=== PATIENT | female | born 1995 | race Caucasian/White ===

== ENCOUNTER 2020-11-30 19:33 | Emergency (ER) | payer MEDICARE, OTHER ==
[~2020-11-30] VITALS: Ht 160 cm; Wt 117.8 kg
[2020-11-30] MEDS ORDERED: TRAM50TA2 PO (19:49)
[2020-11-30] MEDS ORDERED: OLAN15TA PO (19:49)
[2020-11-30] MEDS ORDERED: PROP10TA56 PO (19:49)
[2020-11-30] MEDS ORDERED: PROP20TA72 PO (19:49)
[2020-11-30] MEDS ORDERED: VALI2TAB PO (19:49)
[2020-11-30] MEDS ORDERED: PANT40TA29 PO (19:49)
[2020-11-30] MEDS ORDERED: ZOLO100T PO (19:49)
[2020-11-30] MEDS ORDERED: MELA1LIQ2 PO (19:49)
[2020-11-30] MEDS ORDERED: TEST200I14 IM (19:49)
[2020-11-30] MEDS ORDERED: RISP2TAB32 PO (19:49)
[2020-11-30] MEDS ORDERED: LYRI75CA PO (19:49)
[2020-11-30] MEDS ORDERED: CETI10CA2 PO (19:49)
[2020-11-30] MEDS ORDERED: OLAN10TA12 PO (19:49)
[2020-11-30] MEDS ORDERED: NAPROXEN 250 MG TAB PO ONE (22:05)
[2020-11-30 23:07] LABS: BASO # 0.1 10^3/uL (0.0-0.2); BASO % 0.8 % (0.0-1.0); EOS # 0.2 10^3/uL (0.0-0.5); EOS % 2.8 % (0.0-3.0); HEMATOCRIT 43.3 % (36.0-47.0); HEMOGLOBIN 13.8 g/dl (12.0-15.5); LYMPH # 2.9 10^3/uL (1.5-5.0); LYMPH % 35.3 % (24.0-44.0); MEAN CORPUSCULAR HEMOGLOBIN 27.2 pg (27.0-33.0); MEAN CORPUSCULAR HGB CONC 31.9 g/dl (32.0-36.5); MEAN CORPUSCULAR VOLUME 85.2 fl (80.0-96.0); MONO # 0.7 10^3/uL (0.0-0.8); MONO % 8.9 % (2.0-8.0); NEUTROPHILS # 4.3 10^3/uL (1.5-8.5); NEUTROPHILS % 51.8 % (36.0-66.0); PLATELET COUNT, AUTOMATED 260 10^3/uL (150-450); RED BLOOD COUNT 5.08 10^6/uL (4.00-5.40); WHITE BLOOD COUNT 8.3 10^3/uL (4.0-10.0)
--- NOTE | 2020-11-30 23:32 | REPVR ---
PROCEDURE INFORMATION: Exam: US Nonobstetric Pelvis; Complete (transabdominal and transvaginal) Exam date and time: 11/30/20 (10:19pm) Age: 25 years old Clinical indication: Pelvic pain. Severe cramping, light spotting. Testosterone. Transgender individual. TECHNIQUE: Imaging protocol: Transabdominal and transvaginal pelvic non-obstetric ultrasound. Complete examination. Real time ultrasound with image documentation. COMPARISON: No relevant prior studies available FINDINGS: The LMP is reported to be: 2018 The uterus is anteverted, measuring 7.9 x 3.8 x 4.7 cm in dimensions. No uterine mass is seen. The endometrium measures 6 mm in thickness. Nonspecific linear intrauterine echogenic focus (10 x 2 mm size). The right ovary measures 2.6 x 1.3 x 1.8 cm in size. The left ovary measures 1.8 x 1.3 x 1.8 cm in size. There is no evidence of ovarian torsion on Doppler evaluation. No free pelvic fluid is seen. No solid adnexal masses. IMPRESSION: No acute pelvic pathology. Possible calcified intrauterine scar (linear echogenic focus noted). No solid pelvic mass. No fluid collections. The ovaries are unremarkable, with no evidence of torsion. Electronically signed by: Carmel Alex On 11/30/2020 23:31:26 PM
[2020-12-01] MEDS ORDERED: NAPR-837 PO (00:16)
[2020-12-01 00:48] VITALS: BP 134/80
== END 2020-12-01 00:52 | disposition home or self-care (01) ==
LOC: M ED 19:33
DX: R10.2 Pelvic and perineal pain (principal); F99 Mental disorder, not otherwise specified; M79.7 Fibromyalgia; Z88.8 Allergy status to other drugs, medicaments and biological substances; Z79.899 Other long term (current) drug therapy

== ENCOUNTER → 2020-12-06 | Outpatient (CLI) | payer MEDICARE, OTHER ==
[~2020-12-06] MED LIST: CETI10CA2 PO; LYRI75CA PO; MELA1LIQ2 PO; NAPR-837 PO; OLAN10TA12 PO; OLAN15TA PO; PANT40TA29 PO; PROP10TA56 PO; PROP20TA72 PO; RISP2TAB32 PO; TEST200I14 IM; TRAM50TA2 PO; VALI2TAB PO; ZOLO100T PO
--- NOTE | 2020-12-06 14:29 | REP ---
INDICATION: LOW BACK PAIN. COMPARISON: None. TECHNIQUE: AP and lateral lumbosacral spine. FINDINGS: There is no compression fracture or malalignment. There is normal lumbar lordosis. There is no significant disc space narrowing. The posterior elements are intact. There are hypoplastic 12th ribs present. IMPRESSION: Negative exam lumbosacral spine. <Electronically signed by Ketan Patterson > 12/06/20 [id number]
== END ==
LOC: M WUC 10:10
DX: M54.5 Low back pain (principal)

== ENCOUNTER 2021-01-23 13:33 | Inpatient (IN) | payer MEDICARE, OTHER ==
[~2021-01-23] VITALS: Ht 160 cm; Wt 117.7 kg
[~2021-01-23 13:33] MED LIST changes: -OLAN15TA PO; +OLAN15TA13 PO
[2021-01-23 15:12] LABS: HEMATOCRIT 45.5 % (36.0-52.0); HEMOGLOBIN 14.6 g/dl (12.0-18.0); MEAN CORPUSCULAR HGB CONC 32.1 g/dl (32.0-36.5); MEAN CORPUSCULAR VOLUME 84.3 fl (80.0-96.0); PLATELET COUNT, AUTOMATED 287 10^3/uL (150-450); WHITE BLOOD COUNT 7.6 10^3/uL (4.5-12.0)
[2021-01-23 15:32] LABS: AMPHETAMINES LEVEL URINE NEGATIVE (NEGATIVE); BARBITURATES URINE NEGATIVE (NEGATIVE); BENZODIAZEPINES URINE NEGATIVE (NEGATIVE); CANNABINOIDS URINE NEGATIVE (NEGATIVE); COCAINE METABOLITE URINE NEGATIVE (NEGATIVE); METHADONE URINE NEGATIVE (NEGATIVE); OPIATES URINE NEGATIVE (NEGATIVE); PHENCYCLIDINE URINE NEGATIVE (NEGATIVE)
[2021-01-23 15:40] LABS: ACETAMINOPHEN LEVEL < 2.0 UG/ML (10.0-30.0); ALT/SGPT 20 U/L (12-78); BILIRUBIN,DIRECT 0.1 MG/DL (0.0-0.2); BILIRUBIN,TOTAL 0.6 MG/DL (0.2-1.0); BLOOD UREA NITROGEN 17 MG/DL (7-18); CALCIUM LEVEL 8.9 MG/DL (8.4-10.2); CARBON DIOXIDE LEVEL 27 MEQ/L (21-32); CHLORIDE LEVEL 108 MEQ/L (98-107); CREATININE FOR GFR 1.12 MG/DL (0.55-1.30); ETHYL ALCOHOL (ETHANOL) 0.003 % (0.000-0.010); GLOMERULAR FILTRATION RATE > 60.0 (>60); GLUCOSE, FASTING 90 MG/DL (40-105); POTASSIUM SERUM 4.3 MEQ/L (3.5-5.1); SALICYLATE LEVEL < 1.7 MG/DL (5.0-30.0); SODIUM LEVEL 140 MEQ/L (136-145); THYROID STIMULATING HORMONE 0.936 uIU/ML (0.358-3.740); TOTAL PROTEIN 7.1 GM/DL (6.4-8.2)
[2021-01-23 18:37] LABS: HCG, SERUM QUALITATIVE NEGATIVE
[2021-01-23] MEDS ORDERED: risperiDONE 2 MG TAB PO ONE (18:45)
[2021-01-24] MEDS ORDERED: METAL LOCK LOOP XX ONE (03:56)
[2021-01-24] MEDS: CETIRIZINE (ZyrTEC) 10 MG TAB PO SCH (09:00)
[2021-01-24] MEDS ORDERED: PREGABALIN 75 MG CAP(LYRICA) PO ONE (09:25)
[2021-01-24] MEDS ORDERED: PROPRANOLOL 20 MG TAB PO ONE (09:25)
[2021-01-24] MEDS ORDERED: SERTRALINE 100 MG TAB PO ONE (09:25)
[2021-01-24] MEDS ORDERED: PANTOPRAZOLE 40MG TAB (PROTONIX) PO ONE (09:25)
[2021-01-24] MEDS ORDERED: PROPRANOLOL 10 MG TAB PO ONE (10:00)
[2021-01-24] MEDS ORDERED: NAPROXEN 250 MG TAB PO ONE (10:45)
[2021-01-24] MEDS ORDERED: CETI-24 PO (12:40)
[2021-01-24] MEDS ORDERED: NAPR-885 PO (12:40)
[2021-01-24] MEDS ORDERED: MELA3TAB13 PO (12:40)
[2021-01-24] MEDS ORDERED: traZODone 50 MG TAB PO PRN (12:50)
[2021-01-24] MEDS ORDERED: ACETAMINOPHEN TAB 650MG DOSE (2X325MG) PO PRN (12:50)
[2021-01-24] MEDS ORDERED: MOM 30ML SUSPENSION UDC PO PRN (12:50)
[2021-01-24] MEDS ORDERED: MAALOX 30 ML SUSP *UDC PO PRN (12:50)
[2021-01-24 13:15] LABS: RSV AMPLIFICATION NEGATIVE (NEGATIVE)
[2021-01-24 14:01] VITALS: BP 104/54
[2021-01-24] MEDS: LORazepam 2 MG TAB PO PRN (18:00)
[2021-01-24] MEDS: risperiDONE 2 MG TAB PO SCH (21:39)
[2021-01-24] MEDS: PREGABALIN 75 MG CAP(LYRICA) PO SCH (21:39)
[2021-01-24] MEDS: PROPRANOLOL 20 MG TAB PO SCH (22:09)
[2021-01-25 06:33] VITALS: BP 152/78
[2021-01-25] MEDS: CETIRIZINE (ZyrTEC) 10 MG TAB PO SCH (07:33)
[2021-01-25] MEDS: SERTRALINE 100 MG TAB PO SCH (07:33)
[2021-01-25] MEDS: LORazepam 2 MG TAB PO PRN ×2 (07:33→13:36)
[2021-01-25] MEDS: PANTOPRAZOLE 40MG TAB (PROTONIX) PO SCH (07:33)
[2021-01-25] MEDS: PROPRANOLOL 20 MG TAB PO SCH ×2 (07:35→20:11)
[2021-01-25] MEDS: PREGABALIN 75 MG CAP(LYRICA) PO SCH ×2 (07:35→20:09)
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
--- NOTE | 2021-01-25 15:11 | HPEPDOC ---
[facility] Medical History & Physical Date of Admission Jan 24, 2021 Date of Service: Jan 25, 2021 History and Physical Chief complaint: Who presented to the emergency room after experiencing suicidal thoughts History of present illness: Patient is a 25-year-old transgendered female who presented to the emergency room with suicidal thoughts. Patient was admitted to the inpatient mental health unit under the care of psychiatry. Hospitalist service was consulted for medical screening evaluation. Patient reports a mild headache. They deny any nausea, vomiting, chest pain, shortness breath, palpitations, abdominal pain, constipation, diarrhea, or urinary discomfort. They deny any recent fevers or chills. Patient reports that they may be experiencing 5 pound weight loss over 7 days. Reports that her appetite has been relatively stable. Past Medical History: Tachycardia Fibromyalgia PTSD / Anxiety / Depression / Borderline personality disorder / OCD / Eating disorder GERD Past Surgical History: Dilation and curettage 2017 Scheduled to receive hysterectomy on 02/2021 Allergies: See below Medications: See below Family History: - Mother with a history of SVT, diabetes, arthritis and mental health disorders - Father with history of ME Social History: - Denies the use of alcohol, tobacco or illicit drugs - Denies recent travel or sick contacts - Lives with roommate - Occupation; disabled Review of Systems: 10 point review of systems complete, all negative otherwise stated in HPI Physical exam: - Vitals: BP [152/78], HR [100], RR [18], Sat [95%RA], Temp [99.7F] - General: Sitting up in bed, Speaking in full sentences, AAOx3 - HEENT: NC, AT, PERRLA, EOMI - CVS: RRR, +S1S2 - Lungs: Fair air entry bilaterally, No appreciable wheezing / rales / rhonchi - Abdomen: Soft, Non-distended, Non-tender - Extremities: No lower extremity edema, No calf tenderness - Neuro: No focal motor or sensory deficit - Skin: No visible rashes Labs: See below Imaging: See below EKG: See below Assessment and Plan: Suicidal ideation / Self harm behavior - Hx of PTSD / Anxiety / Depression / Borderline personality disorder / OCD / Eating disorder - Currently has been admitted to the inpatient mental health unit under the care of psychiatry - Currently being managed by psychiatry Tachycardia - Continue propranolol Fibromyalgia - c/w Pregabalin GERD - c/w Protonix DVT prophylaxis - Will c/w early ambulation 2 female industrial technician was present throughout the duration of this history and physical examination Thank you for this consultation; hospitalist service will now sign off, please reconsult as needed Vital Signs Vital Signs Date Time Temp Pulse Resp B/P (MAP) Pulse Ox O2 Delivery O2 Flow Rate FiO2 01/25/21 07:35 100 124/71 01/25/21 06:33 99.7 18 95 Room Air Home Medications Scheduled Cetirizine HCl (Cetirizine HCl) 10 Mg Tablet, 10 MG PO DAILY Melatonin/Pyridoxine HCl (B6) (Melatonin 3 mg Tablet) 1 Each Tablet, 3 MG PO QHS Pantoprazole Sodium (Pantoprazole Sodium) 40 Mg Tablet.dr, 40 MG PO DAILY Pregabalin (Lyrica) 75 Mg Capsule, 75 MG PO BID Propranolol HCl (Propranolol HCl) 20 Mg Tablet, 20 MG PO BID Risperidone (Risperdal) 2 Mg Tablet, 2 MG PO QHS Sertraline Hcl (Zoloft) 100 Mg Tablet, 100 TAB PO DAILY Testosterone Cypionate (Testosterone Cypionate) 200 Mg/1 Ml Vial, 0.4 ML IM QWEEK TUESDAYS Scheduled PRN Naproxen (Naproxen) 500 Mg Tablet, 500 MG PO BID PRN for PAIN LEVEL 1-4 Allergies Coded Allergies: quetiapine (Verified Adverse Reaction, Intermediate, DRY MOUTH AND PANICS, 11/30/20) LISA SCHAFER MD Jan 25, 2021 15:11
[2021-01-25 18:27] VITALS: BP 137/74
[2021-01-25] MEDS: risperiDONE 2 MG TAB PO SCH (20:09)
[2021-01-26 06:00] VITALS: BP 113/58
[2021-01-26] MEDS: LORazepam 2 MG TAB PO PRN ×2 (06:27→12:28)
[2021-01-26] MEDS: CETIRIZINE (ZyrTEC) 10 MG TAB PO SCH (08:04)
[2021-01-26] MEDS: PANTOPRAZOLE 40MG TAB (PROTONIX) PO SCH (08:04)
[2021-01-26] MEDS: SERTRALINE 100 MG TAB PO SCH (08:04)
[2021-01-26] MEDS: PREGABALIN 75 MG CAP(LYRICA) PO SCH ×2 (08:05→22:23)
[2021-01-26] MEDS: PROPRANOLOL 20 MG TAB PO SCH ×2 (08:05→22:22)
[2021-01-26] MEDS: risperiDONE 1 MG TAB PO SCH (09:00)
[2021-01-26] MEDS: NAPROXEN 250 MG TAB PO PRN (11:47)
--- NOTE | 2021-01-26 13:03 | MHIPNPDOC ---
[facility] Progress Note Progress Note DATE OF SERVICE: 01/26/21 HISTORY: As per ED report and previous records: " HISTORY OF THE PRESENT ILLNESS: Patient is a 25 -year-old Single, Disabled, , transgender female to male who voiced his concerns of suicidal thoughts to overdose on medications or cut self with a razor blade due to increasing anxiety and panic attacks. He was sent to the ED for mental health evaluation and was unable to contract for safety. Patient reports that this is his 28th hospitalization and most recently was discharged on November 29 from [facility] following an overdose. Patient reports that he lost a baby in 2016 and began hormones to transgender to male in 2018. He reports diagnoses Major Depressive Disorder, Autism, Borderline Personality Disorder, PTSD, OCD and Unspecified Eating Disorder. On this occasion, patient had taken a comb and scratched herself with it causing laceration to right forearm. He was placed on 1:1 sitter for her risk of self harm behavior. He is requesting to be discharged today stating that he will be unsafe in the hospital, as well as, at home. Per ED Reports Pt was referred by [facility] Reject Opener And Filler after pt. voiced wanting to harm himself with medication (that was going to be delivered this afternoon) or by cutting with a razor blade due to increasing panic attacks. Pt denied SI initially, but unable to CFS and states "If I go home I will probably overdose like I have in the past." Pt states," I am really nervous that I'm going to end up killing myself, even though I don't have active suicidal thoughts." He reports being transgendered ([id number]), recently moved from [facility] to [facility] on 11/29/20. He reports a Hx of Major Depression, PTSD, OCD, and B orderline Personality Disorder. States he has numerous hospitalizations to [facility]- was recently discharged Nov, 2020 following a suicide attempt by OD. Pt reports being increasingly stressed today after being at [facility] and not having any groups to attend. He admits it was too quite which was triggering panic-like symptoms. Other stressors include feeling lonely due to just recently moving to the area and has not been fully established with CC. Pt reports reflecting back on his stressors today and contacted his bilingual case manager and informed her he was not sure if he could keep himself safe. He reported his medication was going to be delivered today by the pharmacy and could not guarantee he wouldn't OD and kill himself, even though he denied SI. He also reported having access to a used razor at home and admitted to bilingual case manager he wanted to cut himself. Pt does not appear to be a reliable historian at this time. He denies SI, but then states he is unable to CFS if discharged. VITAL SIGNS: See below. NEW TEST RESULTS: See below CURRENT MEDICATIONS: See below. MENTAL STATUS EXAMINATION: Patient is a 25-year old female, who is awar, wearing hospital scrubs, superficially cooperative, with poor eye contact, playing games in his room with his sitter aide to keep him distracted. He's overweight with parts of his hair dyed red Speech: Is slow, normal in tone, low volume, not fluent but is spontaneous. Language skills are fair. Thought processes including: linear and coherent. Thought content: redundant about the possibility of hurting himself although he said he didn't have suicidal ideation this morning, he denies homicidal ideation, denies feeling paranoid. Description of associations: they are not loose Description of abnormal or psychotic thoughts: he denies TAV hallucinations, he's not responding to internal stimuli Judgment: Poor Insight: poor. Orientation: to place, person and situation. Recent and remote memory: fair. Attention span and concentration: not easily distracted at this time. Language: not abnormalities observed. Fund of knowledge: unable to assess. Mood: depressed. Affect: constricted/sad. DIAGNOSES: Major Depressive Disorder, recurrent, mild Autism, Borderline Personality Disorder, PTSD, OCD nspecified Eating Disorder. ASSESSMENT: The patient is sitting in his room coloring, playing games with his sitter who is helping him get distracted. he says he feels sad because he misses his baby. According to history the patient started the process to become transgender after he miscarried his baby in 2017 and since then he has had multiple hospitalizations. He has been restricted from group activity and he says this is the result of him grabbing a pencil to self harm. He wants to know when he would be able to go back to groups and I explained he needs to prove he is in control of his impulses and behavior before he goes back to group. He was receptive. i will incease his Risperdal and will order 1 mg PO In AM. MANAGEMENT PLAN: As above TIME SPENT: 15 minutes. Vital Signs Vital Signs Date Time Temp Pulse Resp B/P (MAP) Pulse Ox O2 Delivery O2 Flow Rate FiO2 01/26/21 08:05 88 113/58 01/26/21 06:00 98.7 20 93 Room Air Current Medications Current Medications Medications (Trade) Dose Ordered Sig/Louie Route PRN Reason Start Time Stop Time Status Last Admin Dose Admin Acetaminophen (Tylenol Tab) 650 mg Q6HP PRN PO HEADACHE or MILD DISCOMFORT 01/24/21 12:50 01/25/21 09:57 Al Hydrox/Mg Hydrox/Simethicone (Mylanta) 30 ml Q4HP PRN PO HEARTBURN/INDIGESTION 01/24/21 12:50 Cetirizine HCl (ZyrTEC) 10 mg DAILY PO 01/24/21 09:00 01/26/21 08:04 Home Med (Med Rec Complete!) ASDIRECTED XX 01/24/21 12:45 01/24/21 12:42 DC Lorazepam (Ativan) 2 mg Q6HP PRN PO ANXIETY/AGITATION 01/24/21 17:40 01/26/21 12:28 Magnesium Hydroxide (Milk Of Magnesia) 30 ml DAILYPRN PRN PO CONSTIPATION 01/24/21 12:50 Naproxen (Naprosyn) 500 mg BID PRN PO PAIN LEVEL 1-4 01/24/21 12:50 01/26/21 11:47 Pantoprazole Sodium (Protonix) 40 mg DAILY PO 01/25/21 09:00 01/26/21 08:04 Pregabalin (Lyrica) 75 mg BID PO 01/24/21 21:00 01/26/21 08:05 Propranolol HCl (Inderal) 20 mg BID PO 01/24/21 21:00 01/26/21 08:05 Risperidone (RisperDAL) 2 mg QHS PO 01/24/21 21:00 01/25/21 20:09 Sertraline HCl (Zoloft) 100 mg DAILY PO 01/25/21 09:00 01/26/21 08:04 Trazodone HCl (Desyrel) 50 mg QHSP PRN PO INSOMNIA 01/24/21 12:50 Allergies Coded Allergies: quetiapine (Verified Adverse Reaction, Intermediate, DRY MOUTH AND PANICS, 11/30/20) HEIDI CRUM MD Jan 26, 2021 12:55
[2021-01-26] MEDS ORDERED: diphenhydrAMINE 50MG/ML VIAL (J1200) IM ONE (13:30)
[2021-01-26] MEDS ORDERED: diphenhydrAMINE 50MG CAP PO STA (13:34)
[2021-01-26 17:00] VITALS: BP 123/75
[2021-01-26] MEDS: risperiDONE 2 MG TAB PO SCH (22:22)
[2021-01-27 07:10] VITALS: BP 118/68
[2021-01-27] MEDS: PANTOPRAZOLE 40MG TAB (PROTONIX) PO SCH (08:02)
[2021-01-27] MEDS: CETIRIZINE (ZyrTEC) 10 MG TAB PO SCH (08:02)
[2021-01-27] MEDS: LORazepam 2 MG TAB PO PRN ×2 (08:02→16:11)
[2021-01-27] MEDS: PREGABALIN 75 MG CAP(LYRICA) PO SCH ×2 (08:02→20:03)
[2021-01-27] MEDS: risperiDONE 1 MG TAB PO SCH (08:03)
[2021-01-27] MEDS: SERTRALINE 100 MG TAB PO SCH (08:03)
[2021-01-27] MEDS: PROPRANOLOL 20 MG TAB PO SCH ×2 (08:04→20:03)
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
[2021-01-27] MEDS: risperiDONE 2 MG TAB PO SCH (20:04)
[2021-01-28] MEDS: LORazepam 2 MG TAB PO PRN ×2 (07:18→14:15)
[2021-01-28] MEDS: PROPRANOLOL 20 MG TAB PO SCH ×2 (08:05→21:23)
[2021-01-28] MEDS: PANTOPRAZOLE 40MG TAB (PROTONIX) PO SCH (08:05)
[2021-01-28] MEDS: PREGABALIN 75 MG CAP(LYRICA) PO SCH ×2 (08:05→21:23)
[2021-01-28] MEDS: SERTRALINE 100 MG TAB PO SCH (08:05)
[2021-01-28] MEDS: risperiDONE 1 MG TAB PO SCH (08:05)
[2021-01-28] MEDS: CETIRIZINE (ZyrTEC) 10 MG TAB PO SCH (08:06)
--- NOTE | 2021-01-28 11:21 | MHIPNPDOC ---
[facility] Progress Note Progress Note DATE OF SERVICE: 01/28/21 HISTORY: As per ED report and previous records: "Patient is a 25 -year-old Single, Disabled, , transgender female to male who voiced his concerns of suicidal thoughts to overdose on medications or cut self with a razor blade due to increasing anxiety and panic attacks. He was sent to the ED for mental health evaluation and was unable to contract for safety. Patient reports that this is his 28th hospitalization and most recently was discharged on November 29 from [facility] following an overdose. Patient reports that he lost a baby in 2017 and began hormones to transgender to male in 2018. He reports diagnoses Major Depressive Disorder, Autism, Borderline Personality Disorder, PTSD, OCD and Unspecified Eating Disorder. On this occasion, patient had taken a comb and scratched herself with it causing laceration to right forearm. He was placed on 1:1 sitter for her risk of self harm behavior. He is requesting to be discharged today stating that he will be unsafe in the hospital, as well as, at home. Per ED Reports Pt was referred by [facility] Adjunct Writing Instructor after pt. voiced wanting to harm himself with medication (that was going to be delivered this afternoon) or by cutting with a razor blade due to increasing panic attacks. Pt denied SI initially, but unable to CFS and states "If I go home I will probably overdose like I have in the past." Pt states," I am really nervous that I'm going to end up killing myself, even though I don't have active suicidal thoughts." He reports being transgendered ([id number]), recently moved from [facility] to [facility] on 11/29/20. He reports a Hx of Major Depression, PTSD, OCD, and Borderline Personality Disorder. States he has numerous hospitalizations to [facility]-was recently discharged Nov, 2020 following a suicide attempt by OD. Pt reports being increasingly stressed today after being at [facility] and not having any groups to attend. He admits it was too quite which was triggering panic-like symptoms. Other stressors include feeling lonely due to just recently moving to the area and has not been fully established with CC. Pt reports reflecting back on his stressors today and contacted his therapeutic case manager and informed her he was not sure if he could keep himself safe. He reported his medication was going to be delivered today by the pharmacy and could not guarantee he wouldn't OD and kill himself, even though he denied SI. He also reported having access to a used razor at home and admitted to therapeutic case manager he wanted to cut himself. Pt does not appear to be a reliable historian at this time. He denies SI, but then states he is unable to CFS if discharged. VITAL SIGNS: See below. NEW TEST RESULTS: See below CURRENT MEDICATIONS: See below. MENTAL STATUS EXAMINATION: Patient is a 25-year old female, who is wearing hospital scrubs, cooperative, with improved eye contact, obese Speech: Is slow, normal in tone, low volume, not fluent but is spontaneous. Language skills are fair. Thought processes including: linear and coherent. Thought content: denies suicidal thoughts, reports worsening depression and anxiety because of her admission Description of associations: they are not loose Description of abnormal or psychotic thoughts: he denies TAV hallucinations, he's not responding to internal stimuli Judgment: Fair Insight: Fair Orientation: to place, person and situation. Recent and remote memory: fair. Attention span and concentration: not easily distracted at this time. Language: not abnormalities observed. Fund of knowledge: unable to assess. Mood: depressed. Affect: constricted/sad. DIAGNOSES: Major Depressive Disorder, recurrent, mild Autism, Borderline Personality Disorder, PTSD, OCD Unspecified Eating Disorder. ASSESSMENT: Patient is in bed, states that over the weekend he opened up the wound on his arm because of intrusive memories and triggers. He also complained of RN not understanding his Borderline symptoms and thought processing. Patient was not forthcoming about his intrusive thoughts and what is triggering him. He wanted the 1:1 sitter to be discontinued. "I want to go to groups, have my meals in the dining room, I want to be able to eat with a fork and I don't want to have a sitter." When I reinforced the sitter and continued finger foods, he states, "If you don't trust me, why are you considering discharging me tomorrow?" Reinforced with patient that he stated that he was unsafe at the hospital and at home and that his own words were "I will be unsafe in the hospital, as well as, at home." Reinforced with the patient that his choices ultimately are his. He is not psychotic or intoxicated or have any cognitive impairment that prevents him from acting under his own choice and volition to self-harm whether in the hospital or at home. This patient states that this is his 28th hospitalization and it appears that he has not truly benefitted from past hospitalizations under similar conditions in terms of behavioral modifications or improvement in mental health or social conditions. He states that his mood is worse, albeit he currently has no thoughts to self harm. Patient was more self-motivated on Thursday when I spoke with [facility] to advocate for [facility] placement for the patient. Patient can be discharged tomorrow. MANAGEMENT PLAN: Continue all medications, discharge tomorrow TIME SPENT: 25 minutes. Vital Signs Vital Signs Date Time Temp Pulse Resp B/P (MAP) Pulse Ox O2 Delivery O2 Flow Rate FiO2 01/28/21 08:05 112 118/66 01/27/21 07:10 98.1 20 96 Room Air Current Medications Current Medications Medications (Trade) Dose Ordered Sig/Louie Route PRN Reason Start Time Stop Time Status Last Admin Dose Admin Acetaminophen (Tylenol Tab) 650 mg Q6HP PRN PO HEADACHE or MILD DISCOMFORT 01/24/21 12:50 01/25/21 09:57 Al Hydrox/Mg Hydrox/Simethicone (Mylanta) 30 ml Q4HP PRN PO HEARTBURN/INDIGESTION 01/24/21 12:50 Cetirizine HCl (ZyrTEC) 10 mg DAILY PO 01/24/21 09:00 01/28/21 08:06 Diphenhydramine HCl (Benadryl) 50 mg STAT STAT PO 01/26/21 13:34 01/26/21 13:35 DC 01/26/21 13:37 Home Med (Med Rec Complete!) ASDIRECTED XX 01/24/21 12:45 01/24/21 12:42 DC Lorazepam (Ativan) 2 mg Q6HP PRN PO ANXIETY/AGITATION 01/24/21 17:40 01/28/21 07:18 Magnesium Hydroxide (Milk Of Magnesia) 30 ml DAILYPRN PRN PO CONSTIPATION 01/24/21 12:50 Naproxen (Naprosyn) 500 mg BID PRN PO PAIN LEVEL 1-4 01/24/21 12:50 01/26/21 11:47 Pantoprazole Sodium (Protonix) 40 mg DAILY PO 01/25/21 09:00 01/28/21 08:05 Pregabalin (Lyrica) 75 mg BID PO 01/24/21 21:00 01/28/21 08:05 Propranolol HCl (Inderal) 20 mg BID PO 01/24/21 21:00 01/28/21 08:05 Risperidone (RisperDAL) 1 mg QAM PO 01/26/21 09:00 01/28/21 08:05 Risperidone (RisperDAL) 2 mg QHS PO 01/24/21 21:00 01/27/21 20:04 Sertraline HCl (Zoloft) 100 mg DAILY PO 01/25/21 09:00 01/28/21 08:05 Trazodone HCl (Desyrel) 50 mg QHSP PRN PO INSOMNIA 01/24/21 12:50 01/27/21 20:04 Allergies Coded Allergies: quetiapine (Verified Adverse Reaction, Intermediate, DRY MOUTH AND PANICS, 11/30/20) HELDER EDWARDS NP Jan 28, 2021 10:11
[2021-01-28] MEDS ORDERED: OLANZapine ORAL DISINTEGRATING TAB 5MG PO PRN (14:35)
[2021-01-28] MEDS: risperiDONE 2 MG TAB PO SCH (21:23)
[2021-01-29 08:03] VITALS: BP 124/71
[2021-01-29] MEDS: risperiDONE 1 MG TAB PO SCH (08:03)
[2021-01-29] MEDS: PANTOPRAZOLE 40MG TAB (PROTONIX) PO SCH (08:03)
[2021-01-29] MEDS: PREGABALIN 75 MG CAP(LYRICA) PO SCH (08:03)
[2021-01-29] MEDS: CETIRIZINE (ZyrTEC) 10 MG TAB PO SCH (08:03)
[2021-01-29] MEDS: SERTRALINE 100 MG TAB PO SCH (08:03)
[2021-01-29] MEDS: PROPRANOLOL 20 MG TAB PO SCH (08:03)
[2021-01-29] MEDS ORDERED: RISP-8 PO (09:05)
[2021-01-29] MEDS: NAPROXEN 250 MG TAB PO PRN (11:16)
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
[2021-01-30] MEDS ORDERED: RISP-8 PO (18:43)
== END 2021-01-29 12:05 | disposition home or self-care (01) | DRG 885 ==
LOC: M ED 13:33 → EDSEX 13:33 → M ED INP 01-24 12:50 → M PSY 01-24 13:54
PROVIDERS: ADMIT Psychiatry & Neurology Psychiatry; ATTEND Psychiatry & Neurology Psychiatry
DX: F33.0 Major depressive disorder, recurrent, mild (principal); R45.851 Suicidal ideations; F84.0 Autistic disorder; F60.3 Borderline personality disorder; F42.9 Obsessive-compulsive disorder, unspecified; F50.9 Eating disorder, unspecified; Z87.890 Personal history of sex reassignment; Z91.5 Personal history of self-harm; Z79.899 Other long term (current) drug therapy; Z88.8 Allergy status to other drugs, medicaments and biological substances; K21.9 Gastro-esophageal reflux disease without esophagitis; M79.7 Fibromyalgia; R00.0 Tachycardia, unspecified; Z62.810 Personal history of physical and sexual abuse in childhood

== ENCOUNTER 2021-01-30 09:48 | Inpatient (IN) | payer MEDICARE, OTHER ==
[~2021-01-30] VITALS: Ht 160 cm; Wt 118.2 kg
[~2021-01-30 09:48] MED LIST changes: +CETI-24 PO; +MELA3TAB13 PO; +NAPR-885 PO; +RISP-8 PO
[2021-01-30 10:42] LABS: HEMATOCRIT 45.9 % (36.0-47.0); HEMOGLOBIN 14.6 g/dl (12.0-15.5); MEAN CORPUSCULAR HGB CONC 31.8 g/dl (32.0-36.5); MEAN CORPUSCULAR VOLUME 84.8 fl (80.0-96.0); PLATELET COUNT, AUTOMATED 230 10^3/uL (150-450); RED BLOOD COUNT 5.41 10^6/uL (4.00-5.40); WHITE BLOOD COUNT 5.6 10^3/uL (4.0-10.0)
[2021-01-30 11:10] LABS: AMPHETAMINES LEVEL URINE NEGATIVE (NEGATIVE); BARBITURATES URINE NEGATIVE (NEGATIVE); BENZODIAZEPINES URINE NEGATIVE (NEGATIVE); CANNABINOIDS URINE NEGATIVE (NEGATIVE); COCAINE METABOLITE URINE NEGATIVE (NEGATIVE); METHADONE URINE NEGATIVE (NEGATIVE); OPIATES URINE NEGATIVE (NEGATIVE); PHENCYCLIDINE URINE NEGATIVE (NEGATIVE)
[2021-01-30 11:19] LABS: ACETAMINOPHEN LEVEL < 2.0 UG/ML (10.0-30.0); ALBUMIN 3.7 GM/DL (3.2-5.2); ALT/SGPT 21 U/L (12-78); BILIRUBIN,DIRECT 0.2 MG/DL (0.0-0.2); BILIRUBIN,TOTAL 0.6 MG/DL (0.2-1.0); BLOOD UREA NITROGEN 17 MG/DL (7-18); CALCIUM LEVEL 8.8 MG/DL (8.5-10.1); CARBON DIOXIDE LEVEL 28 MEQ/L (21-32); CHLORIDE LEVEL 109 MEQ/L (98-107); CREATININE FOR GFR 1.08 MG/DL (0.55-1.30); ETHYL ALCOHOL (ETHANOL) < 0.003 % (0.000-0.010); GLOMERULAR FILTRATION RATE > 60.0 (>60); GLUCOSE, FASTING 102 MG/DL (70-100); POTASSIUM SERUM 4.3 MEQ/L (3.5-5.1); SALICYLATE LEVEL < 1.7 MG/DL (5.0-30.0); SODIUM LEVEL 146 MEQ/L (136-145); THYROID STIMULATING HORMONE 0.638 uIU/ML (0.358-3.740); TOTAL PROTEIN 6.6 GM/DL (6.4-8.2)
[2021-01-30 11:23] LABS: HCG, SERUM QUALITATIVE NEGATIVE (NEGATIVE)
[2021-01-30] MEDS ORDERED: LORazepam 1 MG TAB PO ONE (14:25)
[2021-01-30] MEDS ORDERED: RISP-8 PO (18:43)
--- NOTE | 2021-01-30 20:16 | ECGEPIP ---
[facility] [place] - ED Test Date: 2021-01-30 Pat Name: LAW ROMAN Department: Room: - Gender: Female Director Of Casework Services: : 1995 Requested By: GILBERTO Izaguirre Order Number: [id number] Reading MD: Blanca Reynolds Measurements Intervals [place] Rate: 61 P: 29 TN: 120 QRS: 43 QRSD: 86 T: 31 QT: 372 QTc: 374 Interpretive Statements Normal sinus rhythm No prior Electronically Signed on 01-30-2021 20:16:25 EDT by Blanca Reynolds
[2021-01-31] MEDS ORDERED: PROPRANOLOL 20 MG TAB PO ONE (00:35)
[2021-01-31] MEDS ORDERED: PREGABALIN 75 MG CAP(LYRICA) PO ONE (00:35)
[2021-01-31] MEDS ORDERED: risperiDONE 2 MG TAB PO ONE (00:35)
[2021-01-31] MEDS ORDERED: risperiDONE 1 MG TAB PO SCH (09:00)
[2021-01-31] MEDS ORDERED: PREGABALIN 75 MG CAP(LYRICA) PO SCH (09:00)
[2021-01-31] MEDS ORDERED: SERTRALINE 100 MG TAB PO SCH (09:00)
[2021-01-31] MEDS ORDERED: PROPRANOLOL 20 MG TAB PO SCH (09:00)
[2021-01-31] MEDS ORDERED: PANTOPRAZOLE 40MG TAB (PROTONIX) PO SCH (09:00)
[2021-01-31 13:32] LABS: RSV AMPLIFICATION NEGATIVE (NEGATIVE)
[2021-01-31] MEDS ORDERED: ACETAMINOPHEN TAB 650MG DOSE (2X325MG) PO PRN (15:25)
[2021-01-31] MEDS ORDERED: NICOTINE 21MG/24HR 1 EA TRANSDERMAL TD PRN (15:25)
[2021-01-31] MEDS ORDERED: MOM 30ML SUSPENSION UDC PO PRN (15:25)
[2021-01-31] MEDS ORDERED: MAALOX 30 ML SUSP *UDC PO PRN (15:25)
[2021-01-31 17:14] VITALS: BP 131/78
[2021-01-31] MEDS: PREGABALIN 75 MG CAP(LYRICA) PO SCH (19:41)
[2021-01-31] MEDS: risperiDONE 2 MG TAB PO SCH (19:41)
[2021-01-31] MEDS: PROPRANOLOL 20 MG TAB PO SCH (19:48)
[2021-01-31] MEDS: LORazepam 2 MG TAB PO PRN (20:25)
[2021-01-31] MEDS ORDERED: risperiDONE 2 MG TAB PO SCH (21:00)
[2021-02-01] MEDS: LORazepam 2 MG TAB PO PRN ×3 (06:02→20:11)
[2021-02-01 08:07] VITALS: BP 116/67
[2021-02-01] MEDS: PROPRANOLOL 20 MG TAB PO SCH ×2 (08:14→20:11)
[2021-02-01] MEDS: CETIRIZINE (ZyrTEC) 10 MG TAB PO SCH (08:14)
[2021-02-01] MEDS: SERTRALINE 100 MG TAB PO SCH (08:15)
[2021-02-01] MEDS: risperiDONE 1 MG TAB PO SCH (08:15)
[2021-02-01] MEDS: PANTOPRAZOLE 40MG TAB (PROTONIX) PO SCH (08:15)
[2021-02-01] MEDS: PREGABALIN 75 MG CAP(LYRICA) PO SCH ×2 (08:15→20:11)
--- NOTE | 2021-02-01 09:33 | HPE ---
HISTORY AND PHYSICAL DATE OF ADMISSION: 01/31/2021 HISTORY OF PRESENT ILLNESS: This is a hospitalist generated history and physical. The patient is a 25-year-old transsexual (preferred pronoun he/him) who was admitted to the inpatient mental health unit. He just had a physical done 01/25/2021, and nothing has changed since then. PAST MEDICAL HISTORY: 1. Fibromyalgia. 2. Tachycardia. 3. PTSD. 4. Various psychiatric problems including borderline personality disorder, obsessive compulsive disorder (OCD), and eating disorder. 5. Gastroesophageal reflux disease (GERD). PAST SURGICAL HISTORY: Dilation and curettage (D&C) 2017 (scheduled hysterectomy Dr. Gurrola 02/2021). FAMILY HISTORY: Mother supraventricular tachycardia (SVT), diabetes, arthritis, and mental health disorders. Father with history of myocardial infarction ([place]). SOCIAL HISTORY: Denies alcohol, tobacco, or illicit drugs. REVIEW OF SYSTEMS: No chest pain, shortness of breath, or dyspnea on exertion. PHYSICAL EXAMINATION: VITAL SIGNS: As listed. GENERAL: Hirsute appearance. LUNGS: Clear. HEART: Regular rhythm without murmur. ABDOMEN: Soft and nontender with no masses. EXTREMITIES: No peripheral edema. Coordination normal. NEUROLOGIC: Normal. LABORATORY DATA: Unremarkable. IMPRESSION: No active medical problems that should require ongoing hospitalist involvement. Examination was performed with a female process pumper present at all times.
[2021-02-01] MEDS: NAPROXEN 250 MG TAB PO PRN (12:18)
--- NOTE | 2021-02-01 13:00 | MHHPEPDOC ---
General Date Of Admission: Jan 31, 2021 Legal Status: 9.39 Chief Complaint "I hurt myself." History of Present Illness HISTORY OF THE PRESENT ILLNESS: Patient is a 25 -year-old Single, Disabled, Domiciled, , transgender female to male who reports that he began c utting himself a few hours after his discharge on ThursdayJanuary 28. States that he cut himself on Thursday evening, Thursday morning and today. This is patient's th hospitalization since 2017. He had reported that he cut herself in the ED with a fork. He showed his telephonic nurse case manager that he had been cutting "I wanted her to know so that she could start the papers for [facility]. I want her to fill the papers out. On his last admission patient vacillated between the [facility] apartment where he would be allowed to have an cat or two versus being in [facility] where she will be monitored more often. When asked about his plans to have a pet he stated "I don't know if this is a question of want versus needing to be watched." He reports that his cutting urges vacillates from urges to cut and suicidal ideations. He reports that she has been using cutting as a coping mechanism since 2017 when he lost his baby. Patient has superficial cuts to upper right arm and one laceration to left upper thigh. R eporting depression and passive suicidal ideations today. States that he has had other addictive coping: spending money on [employer] tickets, buying money, spending money on people, giving money away and donating it. Reports a history of being sexually promiscuous after the father of his baby left her. States that he was engaged twice as a male and once as a female. Reports being stalked by a man online for several years. Reports that hospitalizations have not curbed the cutting, he is also not safe in the community. States that many of his urges to cut are not suicidal in nature, but there are times when he is hoping to cut deeper. "If I get a ordering box operator and dig deep. I . I never have a plan. I can be standing there talking to people and laughing and a minute later I want to cut." States that he feels that he needs to be supervised and often will purposefully be good for few days during hospitalization in order to be discharged because he is bored and then goes back to cutting in the commun ity. He randomly states in the interview without provocation, "I have overdosed." Patient was recently discharged from [facility] in November 2020 following an overdose. Patient lost a baby in 2016 and began hormones to transgender to male in 2018 - history of major depressive disorder, autism spectrum, borderline personality disorder, PTSD, OCD and unspecified eating disorder. Psychiatric Review of Systems Depression (2 or more weeks): depressed mood, anhedonia, insomnia/hypersomnia, feelings of excess/guilt, difficulty concentrating, appetite changes, suicidal thoughts, other (Poor impulse control) Emily (4 or more days of): denies PTSD: history of trauma, nightmares and flashbacks, intrusive memories, avoidance of triggers, mood fluctuations Anxiety: situational anxiety, stressor related anxiety Anxiety/ 6 months or more of: restlessness, keyed up, easily fatigued, difficulty concentrating, irritability, sleep disturbance, personality cluster A,BC (Borderline personality disorder) Past Psychiatric History Previous Psychiatric Diagnosis: major depressive disorder, autism spectrum, borderline personality disorder, PTSD, OCD and unspecified eating disorder. Previous Psychiatric Admissions: Last hospitalization 01/25/2020 10/01/21, was hospitalized in [facility] November 2020 following an overdose Suicide Attempts: Multiple attempts by overdose, cutting, choking, trying to break arm by walking into [place] Psychiatric Follow-up: [facility]. [facility] Psychiatric medications: Risperdal and sertraline. Past Medical History Medical Problems D&C in 2016 Fibromyalgia Tachycardia Acid reflux Is scheduled for hysterectomy in February 2021 Head Injury: Yes Seizures: No Hospitalizations: Yes Surgeries: Yes Family Medical/Psychiatric HX Medical Problems Motherdiabetes SVT, arthritis, DJD, bipolar PTSD, borderline personality disorder, history of cutting Father - myocardial infarction Brother autism, PTSD, ODD, sex offender- Psychiatric Disorders: Yes Addiction: No Suicide Attemps/Completions: Yes (Mothermultiple attempts) Addiction History denies Social History Childhood: Born in [place]. Describes childhood as "traumatic". Has a younger brother with diagnosis of autism spectrum, also he is a sex offender Abuse/Trauma: States yes does not disclose Current Living Situation: Currently living at [facility] in the apartment program. Recently moved here from [place] is hopeful for being place in the community residents program Education: College educated. Employment: Unemployed, cannot maintain a job due to severe anxiety. Social Support: [facility], community clinic, mother and friends Legal: None. Marital: Single. Mental Status Examination General Appearance: unkempt, disheveled, ds/not appear stated age, hospital scubs/clothing, other (Green dye on crewcut hair, all multiple tattoos on both arms, Hirsutism) Build: overweight Demeanor: mistrustful, withdrawn, guarded Eye Contact: avoidant Activity: anxious Behavior: cooperative Speech: clear, reg/rate,rhythm,volume Mood: depressed, anxious Affect: flat Thought Process: logical/linear Thought Content (Delusions): none reported Thought Content (Other): autistic (Patient reports being diagnosed with autism), obsessional (Cutting urges), guarded Thought Content (Aggressive): none reported Perception (Hallucinations): none reported Cognition (Impairment of): none reported Cognition(Intelligence Est.): average Oriented: Awake, Alert, Oriented times three Insight: fair, poor Judgment: Fair, Poor Psychosis: Denies Diagnoses Major depressive disorder Autism spectrum borderline personality disorder PTSD OCD Unspecified eating disorder Unspecified anxiety disorder A-FIB/CHADSVASC A-FIB History Current/History of A-Fib/PAF?: No Current PO Anticoag Therapy: No Assessment Patient is a 25-year-old single disabled domiciled transgender female to male who voiced concerns of cutting urges. He showed her lacerations to his telephonic nurse case manager on Thursday evening a few hours after he was discharged from this facility having reported that he was feeling safer. On Thursday he stated that he wanted her telephonic nurse case manager to fill out the forms for community residence but that he often has urges to cut himself due to increasing anxiety and panic. He reports that this is his th hospitalization he was recently discharged from this unit on January 28 and prior to that he had an admission to [facility] in November 2020. Patient has a long history of cutting while hospitalized including on his last admission and prior to the coming to this unit he reports using a fork to cut himself while in the emergency department. During the interview patient states "am I being discharged?" Reinforced with the patient that his choices and urges will most definitely a back and forth situation between hospital and community services. Reinforced that [facility] has to send him to the emergency department after he self harms and that the hospital needs to admit him when he is a danger to himself. Patient again states as he did on his last admission, "I cut myself when I am alone in my apartment and I can cut myself here in this hospital." Treatment plan admit to my service, legal status, labs to be ordered as necessary, patient to participate in group and ind ividual therapy, he will be engage in milieu therapy, he is expected to participate in his discharge planning and be compliant with medications, Reinforced daily skin checks, finger foods only and 1:1 sitter until patient can contract for no self harm while admitted. Initial Treatment Plan 1. Patient was admitted on a [9.39] status. 2. Complete history was obtained. 3. With patients permission, family will be contacted and database will be expanded. 4. Patients medication regimen will be reviewed and changed accordingly. 5. Patient will be provided with protected environment. 6. Patient will be treated with individual, group, and milieu therapies. 7. Patient will receive supportive psych-education. 8. Discharge planning will commence immediately. 9. Outpatient follow-up treatment will be strongly recommended. 10. The initial treatment plan will focus initially on: * Depression. * Risk for suicide. * Positive coping mechanisms ESTIMATED LENGTH OF STAY: 5 to 10 days TIME SPENT COUNSELING AND COORDINATING INITIAL CARE: minutes. Ordered/Pending Vital Signs Vital Signs Date Time Temp Pulse Resp B/P (MAP) Pulse Ox O2 Delivery O2 Flow Rate FiO2 02/01/21 09:02 Room Air 02/01/21 08:14 88 116/67 02/01/21 08:07 98.1 20 97 Laboratory Data 24H Labs Laboratory Tests 2 01/31/21 14:53: Methicillin-Resist S.aureus DNA PCR NOT DETECTED Medications Scheduled Cetirizine HCl (Cetirizine HCl) 10 Mg Tablet, 10 MG PO DAILY, (Reported) Melatonin/Pyridoxine HCl (B6) (Melatonin 3 mg Tablet) 1 Each Tablet, 3 MG PO QHS, (Reported) Pantoprazole Sodium (Pantoprazole Sodium) 40 Mg Tablet.dr, 40 MG PO DAILY, (Reported) Pregabalin (Lyrica) 75 Mg Capsule, 75 MG PO BID, (Reported) Propranolol HCl (Propranolol HCl) 20 Mg Tablet, 20 MG PO BID, (Reported) Risperidone (Risperdal) 2 Mg Tablet, 2 MG PO QHS, (Reported) Risperidone (Risperidone) 1 Mg Tablet, 1 MG PO DAILY, (Reported) Sertraline Hcl (Zoloft) 100 Mg Tablet, 100 TAB PO DAILY, (Reported) Testosterone Cypionate (Testosterone Cypionate) 200 Mg/1 Ml Vial, 0.4 ML IM QWEEK, (Reported) TUESDAYS Scheduled PRN Naproxen (Naproxen) 500 Mg Tablet, 500 MG PO BID PRN for PAIN LEVEL 1-4, (Reported) Allergies Coded Allergies: quetiapine (Verified Adverse Reaction, Intermediate, DRY MOUTH AND PANICS, 11/30/20) HELDER EDWARDS CRACKING MACHINE OPERATOR Feb 01, 2021 13:00
[2021-02-01 18:41] VITALS: BP 134/82
[2021-02-01] MEDS: traZODone 50 MG TAB PO PRN (20:11)
[2021-02-01] MEDS: risperiDONE 2 MG TAB PO SCH (20:11)
[2021-02-02] MEDS: CETIRIZINE (ZyrTEC) 10 MG TAB PO SCH (08:03)
[2021-02-02] MEDS: SERTRALINE 100 MG TAB PO SCH (08:06)
[2021-02-02] MEDS: PANTOPRAZOLE 40MG TAB (PROTONIX) PO SCH (08:06)
[2021-02-02] MEDS: PREGABALIN 75 MG CAP(LYRICA) PO SCH ×2 (08:06→20:03)
[2021-02-02] MEDS: risperiDONE 1 MG TAB PO SCH (08:06)
[2021-02-02] MEDS: PROPRANOLOL 20 MG TAB PO SCH ×2 (08:06→20:04)
[2021-02-02] MEDS: LORazepam 2 MG TAB PO PRN ×2 (11:08→18:13)
--- NOTE | 2021-02-02 12:04 | MHIPNPDOC ---
[facility] Progress Note Progress Note DATE OF SERVICE: 02/02/21 Patient remains on one-to-one close observation and has not shown any agitated or aggressive behavior and has not shown any self mutilating behavior. He is ve ry quiet seclusive withdrawn but in control and denies any active suicidal plan or intent. He is not very productive in his response but has no new complaint and superficially sury for safety. HISTORY:. VITAL SIGNS: See below. NEW TEST RESULTS:. CURRENT MEDICATIONS: See below. MENTAL STATUS EXAMINATION: Patient is a 25-year old female, who is quite withdrawn and preoccupied. Speech: Is relevant but not productive. Language skills are fair. Thought processes including: Relevant. Thought content: Denies any active suicidal plan. Abstract reasoning, and computation: Fair. Description of associations: Not spontaneous. Description of abnormal or psychotic thoughts: Denies any. Judgment: Poor. Insight: Poor. Orientation: Appears oriented. Recent and remote memory:. Attention span and concentration:. Language:. Fund of knowledge:. Mood: Remains markedly depressed and preoccupied. Affect: Guarded blunted. DIAGNOSES: 1.. Major depression 2.. 3.. ASSESSMENT: No basic change but in good control MANAGEMENT PLAN: Continue with supportive therapy and one-to-one observation. TIME SPENT: 15 minutes. Vital Signs Vital Signs Date Time Temp Pulse Resp B/P (MAP) Pulse Ox O2 Delivery O2 Flow Rate FiO2 02/02/21 08:06 122 103/73 02/01/21 18:41 97.6 16 02/01/21 09:02 Room Air 02/01/21 08:07 97 Current Medications Current Medications Medications (Trade) Dose Ordered Sig/Louie Route PRN Reason Start Time Stop Time Status Last Admin Dose Admin Acetaminophen (Tylenol Tab) 650 mg Q6HP PRN PO HEADACHE or MILD DISCOMFORT 01/31/21 15:25 Al Hydrox/Mg Hydrox/Simethicone (Mylanta) 30 ml Q4HP PRN PO HEARTBURN/INDIGESTION 01/31/21 15:25 Cetirizine HCl (ZyrTEC) 10 mg DAILY PO 02/01/21 09:00 02/02/21 08:03 Home Med (Med Rec Complete!) ASDIRECTED XX 01/30/21 18:45 01/30/21 18:46 DC Lorazepam (Ativan) 2 mg Q6HP PRN PO ANXIETY/AGITATION 01/31/21 19:50 02/02/21 11:08 Magnesium Hydroxide (Milk Of Magnesia) 30 ml DAILYPRN PRN PO CONSTIPATION 01/31/21 15:25 Naproxen (Naprosyn) 500 mg BID PRN PO PAIN LEVEL 1-4 01/31/21 15:25 02/01/21 12:18 Nicotine (Nicoderm Cq 21mg) 1 patch DAILY PRN TD nicotine withdrawl 01/31/21 15:25 Pantoprazole Sodium (Protonix) 40 mg DAILY PO 01/31/21 09:00 01/31/21 15:33 DC 01/31/21 10:22 Pantoprazole Sodium (Protonix) 40 mg DAILY PO 02/01/21 09:00 02/02/21 08:06 Pregabalin (Lyrica) 75 mg BID PO 01/31/21 09:00 01/31/21 15:33 DC 01/31/21 10:22 Pregabalin (Lyrica) 75 mg BID PO 01/31/21 21:00 02/02/21 08:06 Propranolol HCl (Inderal) 20 mg BID PO 01/31/21 09:00 01/31/21 15:33 DC 01/31/21 12:12 Propranolol HCl (Inderal) 20 mg BID PO 01/31/21 21:00 02/02/21 08:06 Risperidone (RisperDAL) 1 mg QAM PO 01/31/21 09:00 01/31/21 15:33 DC 01/31/21 10:23 Risperidone (RisperDAL) 1 mg QAM PO 02/01/21 09:00 02/02/21 08:06 Risperidone (RisperDAL) 2 mg QHS PO 01/31/21 21:00 01/31/21 15:33 DC Risperidone (RisperDAL) 2 mg QHS PO 01/31/21 21:00 02/01/21 20:11 Sertraline HCl (Zoloft) 100 mg DAILY PO 01/31/21 09:00 01/31/21 15:33 DC 01/31/21 10:22 Sertraline HCl (Zoloft) 100 mg DAILY PO 02/01/21 09:00 02/02/21 08:06 Trazodone HCl (Desyrel) 50 mg QHSP PRN PO INSOMNIA 01/31/21 15:25 02/01/21 20:11 Allergies Coded Allergies: quetiapine (Verified Adverse Reaction, Intermediate, DRY MOUTH AND PANICS, 11/30/20) LEOLA HOGAN M.D. Feb 02, 2021 12:04
[2021-02-02] MEDS: NAPROXEN 250 MG TAB PO PRN (16:14)
[2021-02-02 16:37] VITALS: BP 112/57
[2021-02-02] MEDS: risperiDONE 2 MG TAB PO SCH (20:03)
[2021-02-02] MEDS: traZODone 50 MG TAB PO PRN (20:04)
[2021-02-03] MEDS: CETIRIZINE (ZyrTEC) 10 MG TAB PO SCH (08:27)
[2021-02-03] MEDS: risperiDONE 1 MG TAB PO SCH (08:27)
[2021-02-03] MEDS: SERTRALINE 100 MG TAB PO SCH (08:27)
[2021-02-03] MEDS: PANTOPRAZOLE 40MG TAB (PROTONIX) PO SCH (08:27)
[2021-02-03] MEDS: PREGABALIN 75 MG CAP(LYRICA) PO SCH ×2 (08:27→20:32)
[2021-02-03] MEDS: PROPRANOLOL 20 MG TAB PO SCH ×2 (08:30→20:32)
[2021-02-03] MEDS: LORazepam 2 MG TAB PO PRN ×2 (11:18→20:31)
[2021-02-03] MEDS ORDERED: LORazepam 1 MG TAB PO ONE (16:00)
[2021-02-03 18:44] VITALS: BP 143/65
[2021-02-03] MEDS: traZODone 50 MG TAB PO PRN (20:32)
[2021-02-03] MEDS: risperiDONE 2 MG TAB PO SCH (20:32)
[2021-02-04] MEDS: PANTOPRAZOLE 40MG TAB (PROTONIX) PO SCH (10:01)
[2021-02-04] MEDS: PREGABALIN 75 MG CAP(LYRICA) PO SCH ×2 (10:01→20:13)
[2021-02-04] MEDS: SERTRALINE 100 MG TAB PO SCH (10:01)
[2021-02-04] MEDS: risperiDONE 1 MG TAB PO SCH (10:01)
[2021-02-04] MEDS: CETIRIZINE (ZyrTEC) 10 MG TAB PO SCH (10:01)
[2021-02-04] MEDS: PROPRANOLOL 20 MG TAB PO SCH ×2 (10:01→20:15)
[2021-02-04] MEDS: LORazepam 2 MG TAB PO PRN ×2 (11:05→18:31)
--- NOTE | 2021-02-04 16:31 | MHIPNPDOC ---
[facility] Progress Note Progress Note DATE OF SERVICE: 02/04/21 HISTORY: Patient is a 25 -year-old Single, Disabled, Domiciled, , transgender female to male who reports that he began cutting himself a few hours after his discharge on ThursdayJanuary 28. States that he cut himself on Thursday evening, Thursday morning and today. This is patient's 29th hospitalization since 2017. He had reported that he cut herself in the ED with a fork. He showed his case mgr that he had been cutting "I wanted her to know so that she could start the papers for [facility]. I want her to fill the papers out. On his last admission patient vacillated between the [facility] apartment where he would be allowed to have an cat or two versus being in [facility] where she will be monitored more often. When asked about his plans to have a pet he stated "I don't know if this is a question of want versus needing to be watched." He reports that his cutting urges vacillates from urges to cut and suicidal ideations. He reports that she has been using cutting as a coping mechanism since 2017 when he lost his baby. Patient has superficial cuts to upper right arm and one laceration to left upper thigh. Reporting depression and passive suicidal ideations today. States that he has had other addictive coping: spending money on [employer] tickets, buying money, spending money on people, giving money away and donating it. Reports a history of being sexually promiscuous after the father of his baby left her. States that he was engaged twice as a male and once as a female. Reports being stalked by a man online for several years. Reports that hospitalizations have not curbed the cutting, he is also not safe in the community. States that many of his urges to cut are not suicidal in nature, but there are times when he is hoping to cut deeper. "If I get a preparing box tender and dig deep. I . I never have a plan. I can be standing there talking to people and laughing and a minute later I want to cut." States that he feels that he needs to be supervised and often will purposefully be good for few days during hospitalization in order to be discharged because he is bored and then goes back to cutting in the community. He randomly states in the interview without provocation, "I have overdosed." Patient was recently discharged from [facility] in November 2020 following an overdose. Patient lost a baby in 2017 and began hormones to transgender to male in 2018 - history of major depressive disorder, autism spectrum, borderline personality disorder, PTSD, OCD and unspecified eating disorder. VITAL SIGNS: See below. CURRENT MEDICATIONS: See below. MENTAL STATUS EXAMINATION: Patient is a 25 -year-old Single, Disabled, Domiciled, , transgender female to male who reports that he began cutting himself a few hours after his discharge Speech: Is relevant but not productive. Slow and low rate and tone Language skills are fair. Thought processes including: Relevant. Thought content: Denies any active suicidal plan. Abstract reasoning, and computation: Fair. Description of associations: Not spontaneous. Description of abnormal or psychotic thoughts: Denies any. Judgment: Poor. Insight: Poor. Orientation: Appears oriented. Recent and remote memory: intact Attention span and concentration: fair Language: fair Fund of knowledge: average Mood: Remains markedly depressed and preoccupied. Affect: Guarded blunted. DIAGNOSES: 1.. Major depression 2. Borderline Personality Disorder 3.. ASSESSMENT: Patient found in room with sitter outside of the door. Patient has a new abrasion to his forehead. States that he has been scratching himself there. When asked about yesterday's episode of self-harm patient states that he found a pencil in the lounge and stabbed himself with it. He rates his depression 7 out of 10 rates anxiety 5 out of 10. He inquires "what is going to happen to me?" When I attempt to speak to the patient about dialectic behavioral therapy he states that he had this in outpatient but it was not consistent. He reports that he had 10 months of no hospitalization. Discussed recreating that blissful situation again in order to minimize multiple hospitalizations. Encouraged patient to use positive coping and to understand that the sitters are to help him. It appears that patient delights in sneaking ways to hurt himself, and shows that he has very little motivation to stop his self-harm acts on the unit. I reinforced with patient that his blatant acts are not conducive to improving and being able to be discharged soon. He appears to not be completely compliant with all manners of the treatment plan. Patient states "well just discharge me and whatever happens, happens. " Encouraged patient to self reflect on his behaviors, to curb them while hospitalized and consider alternative avenues to coping. MANAGEMENT PLAN: Continue all medications, continue with supportive therapy and one-to-one observation. Will discharge when he is at baseline. TIME SPENT: 25 minutes. Vital Signs Vital Signs Date Time Temp Pulse Resp B/P (MAP) Pulse Ox O2 Delivery O2 Flow Rate FiO2 02/04/21 10:01 103 128/85 02/03/21 18:44 97.8 14 02/01/21 09:02 Room Air 02/01/21 08:07 97 Current Medications Current Medications Medications (Trade) Dose Ordered Sig/Louie Route PRN Reason Start Time Stop Time Status Last Admin Dose Admin Acetaminophen (Tylenol Tab) 650 mg Q6HP PRN PO HEADACHE or MILD DISCOMFORT 01/31/21 15:25 Al Hydrox/Mg Hydrox/Simethicone (Mylanta) 30 ml Q4HP PRN PO HEARTBURN/INDIGESTION 01/31/21 15:25 Cetirizine HCl (ZyrTEC) 10 mg DAILY PO 02/01/21 09:00 02/04/21 10:01 Home Med (Med Rec Complete!) ASDIRECTED XX 01/30/21 18:45 01/30/21 18:46 DC Lorazepam (Ativan) 2 mg Q6HP PRN PO ANXIETY/AGITATION 01/31/21 19:50 02/04/21 11:05 Magnesium Hydroxide (Milk Of Magnesia) 30 ml DAILYPRN PRN PO CONSTIPATION 01/31/21 15:25 Naproxen (Naprosyn) 500 mg BID PRN PO PAIN LEVEL 1-4 01/31/21 15:25 02/02/21 16:14 Nicotine (Nicoderm Cq 21mg) 1 patch DAILY PRN TD nicotine withdrawl 01/31/21 15:25 Pantoprazole Sodium (Protonix) 40 mg DAILY PO 01/31/21 09:00 01/31/21 15:33 DC 01/31/21 10:22 Pantoprazole Sodium (Protonix) 40 mg DAILY PO 02/01/21 09:00 02/04/21 10:01 Pregabalin (Lyrica) 75 mg BID PO 01/31/21 09:00 01/31/21 15:33 DC 01/31/21 10:22 Pregabalin (Lyrica) 75 mg BID PO 01/31/21 21:00 02/04/21 10:01 Propranolol HCl (Inderal) 20 mg BID PO 01/31/21 09:00 01/31/21 15:33 DC 01/31/21 12:12 Propranolol HCl (Inderal) 20 mg BID PO 01/31/21 21:00 02/04/21 10:01 Risperidone (RisperDAL) 1 mg QAM PO 01/31/21 09:00 01/31/21 15:33 DC 01/31/21 10:23 Risperidone (RisperDAL) 1 mg QAM PO 02/01/21 09:00 02/04/21 10:01 Risperidone (RisperDAL) 2 mg QHS PO 01/31/21 21:00 01/31/21 15:33 DC Risperidone (RisperDAL) 2 mg QHS PO 01/31/21 21:00 02/03/21 20:32 Sertraline HCl (Zoloft) 100 mg DAILY PO 01/31/21 09:00 01/31/21 15:33 DC 01/31/21 10:22 Sertraline HCl (Zoloft) 100 mg DAILY PO 02/01/21 09:00 02/04/21 10:01 Trazodone HCl (Desyrel) 50 mg QHSP PRN PO INSOMNIA 01/31/21 15:25 02/03/21 20:32 Allergies Coded Allergies: quetiapine (Verified Adverse Reaction, Intermediate, DRY MOUTH AND PANICS, 11/30/20) HELDER EDWARDS NP Feb 04, 2021 16:14
[2021-02-04 17:23] VITALS: BP 110/84
[2021-02-04] MEDS: traZODone 50 MG TAB PO PRN (20:13)
[2021-02-04] MEDS: risperiDONE 2 MG TAB PO SCH (20:13)
[2021-02-05 06:00] VITALS: BP 121/56
[2021-02-05] MEDS: PREGABALIN 75 MG CAP(LYRICA) PO SCH ×2 (08:30→20:29)
[2021-02-05] MEDS: SERTRALINE 100 MG TAB PO SCH (08:30)
[2021-02-05] MEDS: PROPRANOLOL 20 MG TAB PO SCH ×2 (08:32→20:29)
[2021-02-05] MEDS: LORazepam 2 MG TAB PO PRN ×2 (08:32→14:36)
[2021-02-05] MEDS: risperiDONE 1 MG TAB PO SCH (08:32)
[2021-02-05] MEDS: CETIRIZINE (ZyrTEC) 10 MG TAB PO SCH (08:33)
[2021-02-05] MEDS: PANTOPRAZOLE 40MG TAB (PROTONIX) PO SCH (08:33)
--- NOTE | 2021-02-05 13:54 | MHIPNPDOC ---
[facility] Progress Note Progress Note DATE OF SERVICE: 02/05/21 HISTORY: Patient is a 25 -year-old Single, Disabled, Domiciled, , transgender female to male who reports that he began cutting himself a few hours after his discharge on ThursdayJanuary 28. States that he cut himself on Thursday evening, Thursday morning and today. This is patient's 29th hospitalization since 2017. He had reported that he cut herself in the ED with a fork. He showed his housing case manager that he had been cutting "I wanted her to know so that she could start the papers for [facility]. I want her to fill the papers out. On his last admission patient vacillated between the [facility] apartment where he would be allowed to have an cat or two versus being in [facility] where she will be monitored more often. When asked about his plans to have a pet he stated "I don't know if this is a question of want versus needing to be watched." He reports that his cutting urges vacillates from urges to cut and suicidal ideations. He reports that she has been using cutting as a coping mechanism since 2017 when he lost his baby. Patient has superficial cuts to upper right arm and one laceration to left upper thigh. Reporting depression and passive suicidal ideations today. States that he has had other addictive coping: spending money on [employer] tickets, buying money, spending money on people, giving money away and donating it. Reports a history of being sexually promiscuous after the father of his baby left her. States that he was engaged twice as a male and once as a female. Reports being stalked by a man online for several years. Reports that hospitalizations have not curbed the cutting, he is also not safe in the community. States that many of his urges to cut are not suicidal in nature, but there are times when he is hoping to cut deeper. "If I get a box maker wood and dig deep. I . I never have a plan. I can be standing there talking to people and laughing and a minute later I want to cut." States that he feels that he needs to be supervised and often will purposefully be good for few days during hospitalization in order to be discharged because he is bored and then goes back to cutting in the community. He randomly states in the interview without provocation, "I have overdosed." Patient was recently discharged from [facility] in November 2020 following an overdose. Patient lost a baby in 2017 and began hormones to transgender to male in 2018 - history of major depressive disorder, autism spectrum, borderline personality disorder, PTSD, OCD and unspecified eating disorder. VITAL SIGNS: See below. CURRENT MEDICATIONS: See below. MENTAL STATUS EXAMINATION: Patient is a 25 -year-old Single, Disabled, Domiciled, , transgender female to male who reports that he began cutting himself a few hours after his discharge Speech: Low tone and volume, minimal responses Language skills are fair. Thought processes including: Linear and organized Thought content: Denies any active suicidal plan. Abstract reasoning, and computation: Fair. Description of associations: Not spontaneous. Description of abnormal or psychotic thoughts: Denies any. Judgment: Poor. Insight: Poor. Orientation: Appears oriented. Recent and remote memory: intact Attention span and concentration: fair Language:expansive Fund of knowledge: average Mood: depressed. Affect: Guarded. Flat DIAGNOSES: 1.. Major depression 2. Borderline Personality Disorder ASSESSMENT: Patient observed in hallway with sitter, animated and with a bright mood. When he was asked to be interviewed by med student, he refused. Interview occurred in the patient's room. He was covered in his blankets on the bed. He states that he does not wish to speak to me because "You said that you didn't want to work with me because you don't want to go back and forth" Reinforced with the patient the conversation from yesterday that [facility] will always have him be evaluated after any self-harm gestures while in their housing programs. Explained that he will then be hospitalized for acts that appear to be suicidal in nature. Further explained to the patient that it is imperative to have multiple avenues of therapy, mental health services and community outreach for him upon discharge, as he has admitted to elevating his self- destructive behaviors both while hospitalized and in community housing when his wishes are not met. He states that he wants to go to group therapy. At this time, patient shows that his inclination to find objects to self-harm is greater than his motivation to go to group for the therapeutic education, therefore group therapy can be achieved when patient can contract for safety while hospitalized. Patient reports depression and anxiety, has a 1:1 sitter for his impulsive acts of self harm while hospitalized. MANAGEMENT PLAN: Continue all medications, continue with supportive therapy and one-to-one observation. Will discharge when he is at baseline. TIME SPENT: 25 minutes. Vital Signs Vital Signs Date Time Temp Pulse Resp B/P (MAP) Pulse Ox O2 Delivery O2 Flow Rate FiO2 02/05/21 08:32 113 122/62 02/05/21 06:00 98.2 20 100 02/01/21 09:02 Room Air Current Medications Current Medications Medications (Trade) Dose Ordered Sig/Louie Route PRN Reason Start Time Stop Time Status Last Admin Dose Admin Acetaminophen (Tylenol Tab) 650 mg Q6HP PRN PO HEADACHE or MILD DISCOMFORT 01/31/21 15:25 02/05/21 13:11 Al Hydrox/Mg Hydrox/Simethicone (Mylanta) 30 ml Q4HP PRN PO HEARTBURN/INDIGESTION 01/31/21 15:25 Cetirizine HCl (ZyrTEC) 10 mg DAILY PO 02/01/21 09:00 02/05/21 08:33 Home Med (Med Rec Complete!) ASDIRECTED XX 01/30/21 18:45 01/30/21 18:46 DC Lorazepam (Ativan) 2 mg Q6HP PRN PO ANXIETY/AGITATION 01/31/21 19:50 02/05/21 08:32 Magnesium Hydroxide (Milk Of Magnesia) 30 ml DAILYPRN PRN PO CONSTIPATION 01/31/21 15:25 Naproxen (Naprosyn) 500 mg BID PRN PO PAIN LEVEL 1-4 01/31/21 15:25 02/02/21 16:14 Nicotine (Nicoderm Cq 21mg) 1 patch DAILY PRN TD nicotine withdrawl 01/31/21 15:25 Pantoprazole Sodium (Protonix) 40 mg DAILY PO 01/31/21 09:00 01/31/21 15:33 DC 01/31/21 10:22 Pantoprazole Sodium (Protonix) 40 mg DAILY PO 02/01/21 09:00 02/05/21 08:33 Patient Own Medication (Pt Own Med *Controlled Subst*) 0.4 ML Q7D IM 02/05/21 09:00 02/05/21 12:36 DC Patient Own Medication (Pt Own Med *Controlled Subst*) 0.4 ML Q7D SQ 02/05/21 12:36 02/05/21 13:35 Pregabalin (Lyrica) 75 mg BID PO 01/31/21 09:00 01/31/21 15:33 DC 01/31/21 10:22 Pregabalin (Lyrica) 75 mg BID PO 01/31/21 21:00 02/05/21 08:30 Propranolol HCl (Inderal) 20 mg BID PO 01/31/21 09:00 01/31/21 15:33 DC 01/31/21 12:12 Propranolol HCl (Inderal) 20 mg BID PO 01/31/21 21:00 02/05/21 08:32 Risperidone (RisperDAL) 1 mg QAM PO 01/31/21 09:00 01/31/21 15:33 DC 01/31/21 10:23 Risperidone (RisperDAL) 1 mg QAM PO 02/01/21 09:00 02/05/21 08:32 Risperidone (RisperDAL) 2 mg QHS PO 01/31/21 21:00 01/31/21 15:33 DC Risperidone (RisperDAL) 2 mg QHS PO 01/31/21 21:00 02/04/21 20:13 Sertraline HCl (Zoloft) 100 mg DAILY PO 01/31/21 09:00 01/31/21 15:33 DC 01/31/21 10:22 Sertraline HCl (Zoloft) 100 mg DAILY PO 02/01/21 09:00 02/05/21 08:30 Trazodone HCl (Desyrel) 50 mg QHSP PRN PO INSOMNIA 01/31/21 15:25 02/04/21 20:13 Allergies Coded Allergies: quetiapine (Verified Adverse Reaction, Intermediate, DRY MOUTH AND PANICS, 11/30/20) HELDER EDWARDS PUBLICATIONS INSPECTOR Feb 05, 2021 13:39
[2021-02-05 17:10] VITALS: BP 134/91
[2021-02-05] MEDS: NAPROXEN 250 MG TAB PO PRN (18:13)
[2021-02-05] MEDS: risperiDONE 2 MG TAB PO SCH (20:29)
[2021-02-05] MEDS: traZODone 50 MG TAB PO PRN (20:29)
[2021-02-06] MEDS: LORazepam 2 MG TAB PO PRN ×2 (00:35→15:29)
[2021-02-06 06:37] VITALS: BP 137/80
[2021-02-06] MEDS: risperiDONE 1 MG TAB PO SCH (09:50)
[2021-02-06] MEDS: CETIRIZINE (ZyrTEC) 10 MG TAB PO SCH (09:50)
[2021-02-06] MEDS: PREGABALIN 75 MG CAP(LYRICA) PO SCH ×2 (09:50→20:13)
[2021-02-06] MEDS: PROPRANOLOL 20 MG TAB PO SCH ×2 (09:50→20:13)
[2021-02-06] MEDS: PANTOPRAZOLE 40MG TAB (PROTONIX) PO SCH (09:50)
[2021-02-06] MEDS: SERTRALINE 100 MG TAB PO SCH (09:50)
--- NOTE | 2021-02-06 13:23 | MHIPNPDOC ---
[facility] Progress Note Progress Note DATE OF SERVICE: 02/06/21 HISTORY: Patient is a 25 -year-old Single, Disabled, Domiciled, , transgender female to male who reports that he began cutting himself a few hours after his discharge on ThursdayJanuary 28. States that he cut himself on Thursday evening, Thursday morning and today. This is patient's 29th hospitalization since 2017. He had reported that he cut herself in the ED with a fork. He showed his correctional case records supervisor that he had been cutting "I wanted her to know so that she could start the papers for [facility]. I want her to fill the papers out. On his last admission patient vacillated between the [facility] apartment where he would be allowed to have an cat or two versus being in [facility] where she will be monitored more often. When asked about his plans to have a pet he stated "I don't know if this is a question of want versus needing to be watched." He reports that his cutting urges vacillates from urges to cut and suicidal ideations. He reports that she has been using cutting as a coping mechanism since 2017 when he lost his baby. Patient has superficial cuts to upper right arm and one laceration to left upper thigh. Reporting depression and passive suicidal ideations today. States that he has had other addictive coping: spending money on [employer] tickets, buying money, spending money on people, giving money away and donating it. Reports a history of being sexually promiscuous after the father of his baby left her. States that he was engaged twice as a male and once as a female. Reports being stalked by a man online for several years. Reports that hospitalizations have not curbed the cutting, he is also not safe in the community. States that many of his urges to cut are not suicidal in nature, but there are times when he is hoping to cut deeper. "If I get a boxing machine operator and dig deep. I . I never have a plan. I can be standing there talking to people and laughing and a minute later I want to cut." States that he feels that he needs to be supervised and often will purposefully be good for few days during hospitalization in order to be discharged because he is bored and then goes back to cutting in the community. He randomly states in the interview without provocation, "I have overdosed." Patient was recently discharged from [facility] in November 2020 following an overdose. Patient lost a baby in 2017 and began hormones to transgender to male in 2018 - history of major depressive disorder, autism spectrum, borderline personality disorder, PTSD, OCD and unspecified eating disorder. VITAL SIGNS: See below. CURRENT MEDICATIONS: See below. MENTAL STATUS EXAMINATION: Patient is a 25 -year-old Single, Disabled, Domiciled, , transgender female to male who reports that he began cutting himself a few hours after his discharge Speech: Low tone and volume, minimal responses Language skills are fair. Thought processes including: Linear and organized Thought content: Denies any active suicidal plan. Abstract reasoning, and computation: Fair. Description of associations: Not spontaneous. Description of abnormal or psychotic thoughts: Denies any. Judgment: Poor. Insight: Poor. Orientation: Appears oriented. Recent and remote memory: intact Attention span and concentration: fair Language:expansive Fund of knowledge: average Mood: depressed. Affect: Guarded. Flat DIAGNOSES: 1.. Major depression 2. Borderline Personality Disorder ASSESSMENT: Patient found behind the door with RN who is providing the sitting observations. Patient stated that he was irritable because he was speaking to nurse and felt nurse was being judgmental - "she's questioning my choices about the Hysterectomy, my Gastric Bypass." When reinforced that being in the hospital may delay his surgery, patient became tearful. Supportive therapy utilized and provided to strongly recommend that patient had a period of no harm in order to have hysterectomy, which is something he has been wanting/waiting for. Patient has been cutting since she was young as this is a learned coping from her mother who was also a person who used cutting as a coping. Patient cannot maintain safety, feels that she cannot be discharged back to [facility] this week. Patient was able to review safety contract and she signed it. Patient requesting no finger foods, reinforced the contract and stated that she needs to review and determine where she can make behavioral changes to allow for rewarding good behaviors. MANAGEMENT PLAN: Continue all medications, continue with supportive therapy and one-to-one observation. Will discharge when he is at baseline. TIME SPENT: 25 minutes. Vital Signs Vital Signs Date Time Temp Pulse Resp B/P (MAP) Pulse Ox O2 Delivery O2 Flow Rate FiO2 02/06/21 09:50 78 137/80 02/06/21 06:37 99.0 18 96 Room Air Current Medications Current Medications Medications (Trade) Dose Ordered Sig/Louie Route PRN Reason Start Time Stop Time Status Last Admin Dose Admin Acetaminophen (Tylenol Tab) 650 mg Q6HP PRN PO HEADACHE or MILD DISCOMFORT 01/31/21 15:25 02/05/21 13:11 Al Hydrox/Mg Hydrox/Simethicone (Mylanta) 30 ml Q4HP PRN PO HEARTBURN/INDIGESTION 01/31/21 15:25 Cetirizine HCl (ZyrTEC) 10 mg DAILY PO 02/01/21 09:00 02/06/21 09:50 Home Med (Med Rec Complete!) ASDIRECTED XX 01/30/21 18:45 01/30/21 18:46 DC Lorazepam (Ativan) 2 mg Q6HP PRN PO ANXIETY/AGITATION 01/31/21 19:50 02/06/21 00:35 Magnesium Hydroxide (Milk Of Magnesia) 30 ml DAILYPRN PRN PO CONSTIPATION 01/31/21 15:25 Naproxen (Naprosyn) 500 mg BID PRN PO PAIN LEVEL 1-4 01/31/21 15:25 02/05/21 18:13 Nicotine (Nicoderm Cq 21mg) 1 patch DAILY PRN TD nicotine withdrawl 01/31/21 15:25 Pantoprazole Sodium (Protonix) 40 mg DAILY PO 01/31/21 09:00 01/31/21 15:33 DC 01/31/21 10:22 Pantoprazole Sodium (Protonix) 40 mg DAILY PO 02/01/21 09:00 02/06/21 09:50 Patient Own Medication (Pt Own Med *Controlled Subst*) 0.4 ML Q7D IM 02/05/21 09:00 02/05/21 12:36 DC Patient Own Medication (Pt Own Med *Controlled Subst*) 0.4 ML Q7D SQ 02/05/21 12:36 02/05/21 13:35 Pregabalin (Lyrica) 75 mg BID PO 01/31/21 09:00 01/31/21 15:33 DC 01/31/21 10:22 Pregabalin (Lyrica) 75 mg BID PO 01/31/21 21:00 02/06/21 09:50 Propranolol HCl (Inderal) 20 mg BID PO 01/31/21 09:00 01/31/21 15:33 DC 01/31/21 12:12 Propranolol HCl (Inderal) 20 mg BID PO 01/31/21 21:00 02/06/21 09:50 Risperidone (RisperDAL) 1 mg QAM PO 01/31/21 09:00 01/31/21 15:33 DC 01/31/21 10:23 Risperidone (RisperDAL) 1 mg QAM PO 02/01/21 09:00 02/06/21 09:50 Risperidone (RisperDAL) 2 mg QHS PO 01/31/21 21:00 01/31/21 15:33 DC Risperidone (RisperDAL) 2 mg QHS PO 01/31/21 21:00 02/05/21 20:29 Sertraline HCl (Zoloft) 100 mg DAILY PO 01/31/21 09:00 01/31/21 15:33 DC 01/31/21 10:22 Sertraline HCl (Zoloft) 100 mg DAILY PO 02/01/21 09:00 02/06/21 09:50 Trazodone HCl (Desyrel) 50 mg QHSP PRN PO INSOMNIA 01/31/21 15:25 02/05/21 20:29 Allergies Coded Allergies: quetiapine (Verified Adverse Reaction, Intermediate, DRY MOUTH AND PANICS, 11/30/20) HELDER EDWARDS AFFILIATE MARKETING MANAGER Feb 06, 2021 13:23
[2021-02-06 17:28] VITALS: BP 132/66
[2021-02-06] MEDS: traZODone 50 MG TAB PO PRN (20:13)
[2021-02-06] MEDS: risperiDONE 2 MG TAB PO SCH (20:13)
[2021-02-07] MEDS: SERTRALINE 100 MG TAB PO SCH (08:02)
[2021-02-07] MEDS: PANTOPRAZOLE 40MG TAB (PROTONIX) PO SCH (08:02)
[2021-02-07] MEDS: CETIRIZINE (ZyrTEC) 10 MG TAB PO SCH (08:02)
[2021-02-07] MEDS: PROPRANOLOL 20 MG TAB PO SCH ×2 (08:03→20:08)
[2021-02-07] MEDS: risperiDONE 1 MG TAB PO SCH (08:03)
[2021-02-07] MEDS: PREGABALIN 75 MG CAP(LYRICA) PO SCH ×2 (08:03→20:07)
[2021-02-07] MEDS: LORazepam 2 MG TAB PO PRN (08:57)
[2021-02-07] MEDS ORDERED: diphenhydrAMINE 50MG/ML VIAL (J1200) IM STA (11:12)
[2021-02-07] MEDS ORDERED: LORazepam 2 MG/ML VIAL IM STA (11:12)
[2021-02-07] MEDS ORDERED: HALOPERIDOL 5MG/ML VIAL (J1630 PER 1) IM STA (11:12)
[2021-02-07 11:30] VITALS: BP 102/51
[2021-02-07 11:50] VITALS: BP 108/57
[2021-02-07 12:00] VITALS: BP 113/67
--- NOTE | 2021-02-07 12:07 | MHIR ---
General Date: Feb 07, 2021 Time Initiated: 11:25 Restraint Documentation Order/Evaluation FACE TO FACE: [Yes/No]. Yes PHYSICIAN ASSESSMENT: Patient was banging his head on the wall and on the floor. Patient was self-injuring himself. REASON FOR RESTRAINT: Patient poses imminent danger of harming self or others: Patient was being his forehead into a wall and then banging his forehead into a floor. DE-ESCALATION INTERVENTIONS ATTEMPTED BEFORE USE OF RESTRAINTS: Patient has a sitter, patient sitter offered to walk with him, she offered to talk to him, she asked him if there was anything she could do, patient had just been medicated with Ativan [MECHANICAL AND/OR CHEMICAL] RESTRAINTS USED: Patient was mechanically restrained and received emergency medication LENGTH OF TIME ORDERED IN RESTRAINTS: 30-240 minutes, patient is reassessed multiple times for restraints removed based on his ability to contract for his safety. WHEN TO DISCONTINUE RESTRAINTS: [When the patient is no longer a threat to the mselves or others]. Post evaluation of restraint due in 24 hours. HELDER EDWARDS NP Feb 07, 2021 12:00
[2021-02-07 12:15] VITALS: BP 112/55
[2021-02-07 12:30] VITALS: BP 102/55
[2021-02-07 12:45] VITALS: BP 109/57
--- NOTE | 2021-02-07 14:31 | MHIPNPDOC ---
[facility] Progress Note Progress Note DATE OF SERVICE: 02/07/21 HISTORY: Patient is a 25 -year-old Single, Disabled, Domiciled, , transgender female to male who reports that he began cutting himself a few hours after his discharge on ThursdayJanuary 28. States that he cut himself on Thursday evening, Thursday morning and today. This is patient's 29th hospitalization since 2017. He had reported that he cut herself in the ED with a fork. He showed his caseworker protective services that he had been cutting "I wanted her to know so that she could start the papers for [facility]. I want her to fill the papers out. On his last admission patient vacillated between the [facility] apartment where he would be allowed to have an cat or two versus being in [facility] where she will be monitored more often. When asked about his plans to have a pet he stated "I don't know if this is a question of want versus needing to be watched." He reports that his cutting urges vacillates from urges to cut and suicidal ideations. He reports that she has been using cutting as a coping mechanism since 2017 when he lost his baby. Patient has superficial cuts to upper right arm and one laceration to left upper thigh. Reporting depression and passive suicidal ideations today. States that he has had other addictive coping: spending money on [employer] tickets, buying money, spending money on people, giving money away and donating it. Reports a history of being sexually promiscuous after the father of his baby left her. States that he was engaged twice as a male and once as a female. Reports being stalked by a man online for several years. Reports that hospitalizations have not curbed the cutting, he is also not safe in the community. States that many of his urges to cut are not suicidal in nature, but there are times when he is hoping to cut deeper. "If I get a box spring maker and dig deep. I . I never have a plan. I can be standing there talking to people and laughing and a minute later I want to cut." States that he feels that he needs to be supervised and often will purposefully be good for few days during hospitalization in order to be discharged because he is bored and then goes back to cutting in the community. He randomly states in the interview without provocation, "I have overdosed." Patient was recently discharged from [facility] in November 2020 following an overdose. Patient lost a baby in 2017 and began hormones to transgender to male in 2018 - history of major depressive disorder, autism spectrum, borderline personality disorder, PTSD, OCD and unspecified eating disorder. VITAL SIGNS: See below. CURRENT MEDICATIONS: See below. MENTAL STATUS EXAMINATION: Patient is a 25 -year-old Single, Disabled, Domiciled, , transgender female to male who reports that he began cutting himself a few hours after his discharge Speech: Low tone and volume, yelling and moaning Language skills are fair. Thought processes including: Linear and organized Thought content: Denies any active suicidal plan. Abstract reasoning, and computation: Fair. Description of associations: Not spontaneous. Description of abnormal or psychotic thoughts: Denies any. Judgment: Poor. Insight: Poor. Orientation: Appears oriented. Recent and remote memory: intact Attention span and concentration: fair Language:expansive Fund of knowledge: average Mood: depressed/agitated. Affect: agitated Flat DIAGNOSES: 1.. Major depression 2. Borderline Personality Disorder ASSESSMENT: Patient was coded today due to self injurious behaviors. Patient was banging his head against the wall and floor and refused to stop. He states that he was elevated his self-injurious behaviors because he was being discharged next week. Patient elevates his self harm behaviors because he had stated to a sitter that he did not want to be discharged, he wants to return to the Community [facility]idence of [facility]. While patient demonstrates that he can be dangerous to himself, these behaviors also coincide with a belief that he will be discharged soon. And it needs to be clarified that patient is acting out to stay in the hospital. Patient has experienced chronic instability and has very low self-esteem and image, is observed to be emotional unstable, vacillates from being bored and empty to anxious and being fearful Has been assessed at initial restraint MANAGEMENT PLAN: Continue all medications, continue with supportive therapy and one-to-one observation. Will discharge when he is at baseline. TIME SPENT: 35 minutes. Vital Signs Vital Signs Date Time Temp Pulse Resp B/P (MAP) Pulse Ox O2 Delivery O2 Flow Rate FiO2 02/07/21 12:00 97.9 97 16 113/67 99 Room Air Current Medications Current Medications Medications (Trade) Dose Ordered Sig/Louie Route PRN Reason Start Time Stop Time Status Last Admin Dose Admin Acetaminophen (Tylenol Tab) 650 mg Q6HP PRN PO HEADACHE or MILD DISCOMFORT 01/31/21 15:25 02/05/21 13:11 Al Hydrox/Mg Hydrox/Simethicone (Mylanta) 30 ml Q4HP PRN PO HEARTBURN/INDIGESTION 01/31/21 15:25 Cetirizine HCl (ZyrTEC) 10 mg DAILY PO 02/01/21 09:00 02/07/21 08:02 Diphenhydramine HCl (Benadryl) 50 mg STAT STAT IM 02/07/21 11:12 02/07/21 11:14 DC 02/07/21 11:22 Haloperidol (Haldol) 10 mg STAT STAT IM 02/07/21 11:12 02/07/21 11:14 DC 02/07/21 11:22 Home Med (Med Rec Complete!) ASDIRECTED XX 01/30/21 18:45 01/30/21 18:46 DC Lorazepam (Ativan) 2 mg Q6HP PRN PO ANXIETY/AGITATION 01/31/21 19:50 02/07/21 08:57 Lorazepam (Ativan) 2 mg STAT STAT IM 02/07/21 11:12 02/07/21 11:14 DC 02/07/21 11:22 Magnesium Hydroxide (Milk Of Magnesia) 30 ml DAILYPRN PRN PO CONSTIPATION 01/31/21 15:25 Naproxen (Naprosyn) 500 mg BID PRN PO PAIN LEVEL 1-4 01/31/21 15:25 02/05/21 18:13 Nicotine (Nicoderm Cq 21mg) 1 patch DAILY PRN TD nicotine withdrawl 01/31/21 15:25 Pantoprazole Sodium (Protonix) 40 mg DAILY PO 01/31/21 09:00 01/31/21 15:33 DC 01/31/21 10:22 Pantoprazole Sodium (Protonix) 40 mg DAILY PO 02/01/21 09:00 02/07/21 08:02 Patient Own Medication (Pt Own Med *Controlled Subst*) 0.4 ML Q7D IM 02/05/21 09:00 02/05/21 12:36 DC Patient Own Medication (Pt Own Med *Controlled Subst*) 0.4 ML Q7D SQ 02/05/21 12:36 02/05/21 13:35 Pregabalin (Lyrica) 75 mg BID PO 01/31/21 09:00 01/31/21 15:33 DC 01/31/21 10:22 Pregabalin (Lyrica) 75 mg BID PO 01/31/21 21:00 02/07/21 08:03 Propranolol HCl (Inderal) 20 mg BID PO 01/31/21 09:00 01/31/21 15:33 DC 01/31/21 12:12 Propranolol HCl (Inderal) 20 mg BID PO 01/31/21 21:00 02/07/21 08:03 Risperidone (RisperDAL) 1 mg QAM PO 01/31/21 09:00 01/31/21 15:33 DC 01/31/21 10:23 Risperidone (RisperDAL) 1 mg QAM PO 02/01/21 09:00 02/07/21 08:03 Risperidone (RisperDAL) 2 mg QHS PO 01/31/21 21:00 01/31/21 15:33 DC Risperidone (RisperDAL) 2 mg QHS PO 01/31/21 21:00 02/06/21 20:13 Sertraline HCl (Zoloft) 100 mg DAILY PO 01/31/21 09:00 01/31/21 15:33 DC 01/31/21 10:22 Sertraline HCl (Zoloft) 100 mg DAILY PO 02/01/21 09:00 02/07/21 08:02 Trazodone HCl (Desyrel) 50 mg QHSP PRN PO INSOMNIA 01/31/21 15:25 02/06/21 20:13 Allergies Coded Allergies: quetiapine (Verified Adverse Reaction, Intermediate, DRY MOUTH AND PANICS, 11/30/20) HELDER EDWARDS MANAGER WATER WASTEWATER Feb 07, 2021 12:11
[2021-02-07] MEDS: NAPROXEN 250 MG TAB PO PRN (18:09)
[2021-02-07] MEDS: traZODone 50 MG TAB PO PRN (20:07)
[2021-02-07] MEDS: risperiDONE 2 MG TAB PO SCH (20:07)
[2021-02-08] MEDS: PROPRANOLOL 20 MG TAB PO SCH ×2 (08:12→22:39)
[2021-02-08] MEDS: CETIRIZINE (ZyrTEC) 10 MG TAB PO SCH (08:13)
[2021-02-08] MEDS: risperiDONE 1 MG TAB PO SCH (08:13)
[2021-02-08] MEDS: SERTRALINE 100 MG TAB PO SCH (08:13)
[2021-02-08] MEDS: PANTOPRAZOLE 40MG TAB (PROTONIX) PO SCH (08:13)
[2021-02-08] MEDS: PREGABALIN 75 MG CAP(LYRICA) PO SCH ×2 (08:13→22:37)
[2021-02-08] MEDS: LORazepam 2 MG TAB PO PRN ×2 (08:30→16:10)
--- NOTE | 2021-02-08 09:21 | MHIPNPDOC ---
[facility] Progress Note Progress Note DATE OF SERVICE: 02/08/21 HISTORY: Patient is a 25 -year-old Single, Disabled, Domiciled, , transgender female to male who reports that he began cutting himself a few hours after his discharge on ThursdayJanuary 28. States that he cut himself on Thursday evening, Thursday morning and today. This is patient's 29th hospitalization since 2017. He had reported that he cut herself in the ED with a fork. He showed his family independence case manager that he had been cutting "I wanted her to know so that she could start the papers for [facility]. I want her to fill the papers out. On his last admission patient vacillated between the [facility] apartment where he would be allowed to have an cat or two versus being in [facility] where she will be monitored more often. When asked about his plans to have a pet he stated "I don't know if this is a question of want versus needing to be watched." He reports that his cutting urges vacillates from urges to cut and suicidal ideations. He reports that she has been using cutting as a coping mechanism since 2017 when he lost his baby. Patient has superficial cuts to upper right arm and one laceration to left upper thigh. Reporting depression and passive suicidal ideations today. States that he has had other addictive coping: spending money on [employer] tickets, buying money, spending money on people, giving money away and donating it. Reports a history of being sexually promiscuous after the father of his baby left her. States that he was engaged twice as a male and once as a female. Reports being stalked by a man online for several years. Reports that hospitalizations have not curbed the cutting, he is also not safe in the community. States that many of his urges to cut are not suicidal in nature, but there are times when he is hoping to cut deeper. "If I get a box office clerk and dig deep. I . I never have a plan. I can be standing there talking to people and laughing and a minute later I want to cut." States that he feels that he needs to be supervised and often will purposefully be good for few days during hospitalization in order to be discharged because he is bored and then goes back to cutting in the community. He randomly states in the interview without provocation, "I have overdosed." Patient was recently discharged from [facility] in November 2020 following an overdose. Patient lost a baby in 2017 and began hormones to transgender to male in 2018 - history of major depressive disorder, autism spectrum, borderline personality disorder, PTSD, OCD and unspecified eating disorder. VITAL SIGNS: See below. CURRENT MEDICATIONS: See below. MENTAL STATUS EXAMINATION: Patient is a 25 -year-old Single, Disabled, Domiciled, , transgender female to male who reports that he began cutting himself a few hours after his discharge Speech: Low tone and volume, yelling and moaning Language skills are fair. Thought processes including: Linear and organized Thought content: Denies any active suicidal plan. Abstract reasoning, and computation: Fair. Description of associations: Not spontaneous. Description of abnormal or psychotic thoughts: Denies any. Judgment: Poor. Insight: Poor. Orientation: Appears oriented. Recent and remote memory: intact Attention span and concentration: fair Language:expansive Fund of knowledge: average Mood: depressed/agitated. Affect: agitated Flat DIAGNOSES: 1.. Major depression 2. Borderline Personality Disorder ASSESSMENT: Patient was found laying down in his bed. The interview was conducted in the patient's room. During patient interview patient appeared to have depressed mood. The patient self harm behaviors of the previous day were discussed in the interview. Patient reported depressed mood and anxiety. Anxiety is caused by uncertainty for scheduling his gender reassignment surgery. It was made clear to the patient that he would be unlikely to get the surgery if he was still on the unit at the time of the surgery. After the patient interview at around 8:45 in the morning patient reported self harming thoughts along with increased anxiety. Patient was then given Ativan to help calm him. Has been assessed at initial restraint MANAGEMENT PLAN: Continue all medications, continue with supportive therapy and one-to-one observation. Will discharge when he is at baseline. TIME SPENT: 35 minutes. Vital Signs Vital Signs Date Time Temp Pulse Resp B/P (MAP) Pulse Ox O2 Delivery O2 Flow Rate FiO2 02/08/21 08:12 80 108/76 02/07/21 12:45 97.6 16 98 Room Air Current Medications Current Medications Medications (Trade) Dose Ordered Sig/Louie Route PRN Reason Start Time Stop Time Status Last Admin Dose Admin Acetaminophen (Tylenol Tab) 650 mg Q6HP PRN PO HEADACHE or MILD DISCOMFORT 01/31/21 15:25 02/05/21 13:11 Al Hydrox/Mg Hydrox/Simethicone (Mylanta) 30 ml Q4HP PRN PO HEARTBURN/INDIGESTION 01/31/21 15:25 Cetirizine HCl (ZyrTEC) 10 mg DAILY PO 02/01/21 09:00 02/08/21 08:13 Diphenhydramine HCl (Benadryl) 50 mg STAT STAT IM 02/07/21 11:12 02/07/21 11:14 DC 02/07/21 11:22 Haloperidol (Haldol) 10 mg STAT STAT IM 02/07/21 11:12 02/07/21 11:14 DC 02/07/21 11:22 Haloperidol (Haldol) 10 mg STAT STAT PO 02/08/21 08:45 02/08/21 08:46 Cancel Home Med (Med Rec Complete!) ASDIRECTED XX 01/30/21 18:45 01/30/21 18:46 DC Lorazepam (Ativan) 2 mg Q6HP PRN PO ANXIETY/AGITATION 01/31/21 19:50 02/08/21 08:30 Lorazepam (Ativan) 2 mg STAT STAT IM 02/07/21 11:12 02/07/21 11:14 DC 02/07/21 11:22 Magnesium Hydroxide (Milk Of Magnesia) 30 ml DAILYPRN PRN PO CONSTIPATION 01/31/21 15:25 Naproxen (Naprosyn) 500 mg BID PRN PO PAIN LEVEL 1-4 01/31/21 15:25 02/07/21 18:09 Nicotine (Nicoderm Cq 21mg) 1 patch DAILY PRN TD nicotine withdrawl 01/31/21 15:25 Pantoprazole Sodium (Protonix) 40 mg DAILY PO 01/31/21 09:00 01/31/21 15:33 DC 01/31/21 10:22 Pantoprazole Sodium (Protonix) 40 mg DAILY PO 02/01/21 09:00 02/08/21 08:13 Patient Own Medication (Pt Own Med *Controlled Subst*) 0.4 ML Q7D IM 02/05/21 09:00 02/05/21 12:36 DC Patient Own Medication (Pt Own Med *Controlled Subst*) 0.4 ML Q7D SQ 02/05/21 12:36 02/05/21 13:35 Pregabalin (Lyrica) 75 mg BID PO 01/31/21 09:00 01/31/21 15:33 DC 01/31/21 10:22 Pregabalin (Lyrica) 75 mg BID PO 01/31/21 21:00 02/08/21 08:13 Propranolol HCl (Inderal) 20 mg BID PO 01/31/21 09:00 01/31/21 15:33 DC 01/31/21 12:12 Propranolol HCl (Inderal) 20 mg BID PO 01/31/21 21:00 02/08/21 08:12 Risperidone (RisperDAL) 1 mg QAM PO 01/31/21 09:00 01/31/21 15:33 DC 01/31/21 10:23 Risperidone (RisperDAL) 1 mg QAM PO 02/01/21 09:00 02/08/21 08:13 Risperidone (RisperDAL) 2 mg QHS PO 01/31/21 21:00 01/31/21 15:33 DC Risperidone (RisperDAL) 2 mg QHS PO 01/31/21 21:00 02/07/21 20:07 Sertraline HCl (Zoloft) 100 mg DAILY PO 01/31/21 09:00 01/31/21 15:33 DC 01/31/21 10:22 Sertraline HCl (Zoloft) 100 mg DAILY PO 02/01/21 09:00 02/08/21 08:13 Trazodone HCl (Desyrel) 50 mg QHSP PRN PO INSOMNIA 01/31/21 15:25 02/07/21 20:07 Allergies Coded Allergies: quetiapine (Verified Adverse Reaction, Intermediate, DRY MOUTH AND PANICS, 11/30/20) HELDER EDWARDS TICKER WIRER Feb 08, 2021 09:21
--- NOTE | 2021-02-08 09:36 | MHPR ---
General Date: Feb 08, 2021 Time: 09:32 Post-Restraint Evaluation THE OUTCOME OF THE RESTRAINT: Patient was discontinued off restraints when he awoke EFFECTIVENESS OF THE RESTRAINT: Mechanical and/or chemical: [Positive]. ANY EVIDENCE THAT THE PATIENT WAS AFFECTED EMOTIONALLY: Patient reports that he was escalating behaviors due to his thoughts, he is vague on why he felt the need to be self injurious ANY NEED FOR COUNSELING/ASSISTANCE: Patient is maintained on 1:1 sitter CHANGES IN TREATMENT PLAN: None RECOMMENDATIONS FOR FUTURE INCIDENTS: Patient has 1:1 sitter, has been given safety contract while in the hospital - states that he will be compliant but this has not been followed through by the patient. Pt has shown impulsive and acting out behaviors and states that these behaviors are consistent with past hospitalizations. HELDER EDWARDS NP Feb 08, 2021 09:36
--- NOTE | 2021-02-08 09:43 | MHIPNPDOC ---
[facility] Progress Note Progress Note DATE OF SERVICE: 02/08/21 HISTORY: HISTORY: Patient is a 25 -year-old Single, Disabled, Domiciled, , transgender female to male who reports that he began cutting himself a few hours after his discharge on ThursdayJanuary 28. States that he cut himself on Thursday evening, Thursday morning and today. This is patient's 29th hospitalization since 2017. He had reported that he cut herself in the ED with a fork. He showed his manager case management that he had been cutting "I wanted her to know so that she could start the papers for [facility]. I want her to fill the papers out. On his last admission patient vacillated between the [facility] apartment where he would be allowed to have an cat or two versus being in [facility] where she will be monitored more often. When asked about his plans to have a pet he stated "I don't know if this is a question of want versus needing to be watched." He reports that his cutting urges vacillates from urges to cut and suicidal ideations. He reports that she has been using cutting as a coping mechanism since 2017 when he lost his baby. Patient has superficial cuts to upper right arm and one laceration to left upper thigh. Reporting depression and passive suicidal ideations today. States that he has had other addictive coping: spending money on its learningy tickets, buying money, spending money on people, giving money away and donating it. Reports a history of being sexually promiscuous after the father of his baby left her. States that he was engaged twice as a male and once as a female. Reports being stalked by a man online for several years. Reports that hospitalizations have not curbed the cutting, he is also not safe in the community. States that many of his urges to cut are not suicidal in nature, but there are times when he is hoping to cut kandi per. "If I get a box machine operator and dig deep. I . I never have a plan. I can be standing there talking to people and laughing and a minute later I want to cut." States that he feels that he needs to be supervised and often will purposefully be good for few days during hospitalization in order to be discharged because he is bored and then goes back to cutting in the community. He randomly states in the interview without provocation, "I have overdosed." Patient was recently discharged from [facility] in November 2020 following an overdose. Patient lost a baby in 2017 and began hormones to transgender to male in 2018 - history of major depr essive disorder, autism spectrum, borderline personality disorder, PTSD, OCD and unspecified eating disorder. VITAL SIGNS: See below. CURRENT MEDICATIONS: See below. MENTAL STATUS EXAMINATION: Patient is a 25 -year-old Single, Disabled, Domiciled, , transgender female to male who reports that he began cutting himself a few hours after his discharge Speech: Low tone and volume, yelling and moaning Language skills are fair. Thought processes including: Linear and organized Thought content: Denies any active suicidal plan. Abstract reasoning, and computation: Fair. Description of associations: Not spontaneous. Description of abnormal or psychotic thoughts: Denies any. Judgment: Poor. Insight: Poor. Orientation: Appears oriented. Recent and remote memory: intact Attention span and concentration: fair Language:expansive Fund of knowledge: average Mood: depressed/agitated. Affect: agitated Flat DIAGNOSES: 1.. Major depression 2. Borderline Personality Disorder ASSESSMENT: Patient reporting no residual effects from his mechanical restraints and administration of emergency medications. Patient reports continued anxiety and depression, although he had reported a few days ago that he normally has a baseline of depression a 5/10. Patient appears irritable and mildly hostile today. He wants to have his hysterectomy and believes that he can stay on IMHU and have his surgery while hospitalized on IMHU. Reinforced that this is probably not feasible or allowable. Encouraged patient to maintain safety, to maintain his promise to not self injure himself, reinforced again that his psychiatric symptoms may postpone his surgery and that he may need to consider really making a good concerted effort to decide to stop hurting himself prior to, during and post surgery. MANAGEMENT PLAN: Continue all medications, continue with supportive therapy and one-to-one observation. Will discharge when he is at baseline. TIME SPENT: 35 minutes. Vital Signs Vital Signs Date Time Temp Pulse Resp B/P (MAP) Pulse Ox O2 Delivery O2 Flow Rate FiO2 02/08/21 08:12 80 108/76 02/07/21 12:45 97.6 16 98 Room Air Current Medications Current Medications Medications (Trade) Dose Ordered Sig/Louie Route PRN Reason Start Time Stop Time Status Last Admin Dose Admin Acetaminophen (Tylenol Tab) 650 mg Q6HP PRN PO HEADACHE or MILD DISCOMFORT 01/31/21 15:25 02/05/21 13:11 Al Hydrox/Mg Hydrox/Simethicone (Mylanta) 30 ml Q4HP PRN PO HEARTBURN/INDIGESTION 01/31/21 15:25 Cetirizine HCl (ZyrTEC) 10 mg DAILY PO 02/01/21 09:00 02/08/21 08:13 Diphenhydramine HCl (Benadryl) 50 mg STAT STAT IM 02/07/21 11:12 02/07/21 11:14 DC 02/07/21 11:22 Haloperidol (Haldol) 10 mg STAT STAT IM 02/07/21 11:12 02/07/21 11:14 DC 02/07/21 11:22 Haloperidol (Haldol) 10 mg STAT STAT PO 02/08/21 08:45 02/08/21 08:46 Cancel Home Med (Med Rec Complete!) ASDIRECTED XX 01/30/21 18:45 01/30/21 18:46 DC Lorazepam (Ativan) 2 mg Q6HP PRN PO ANXIETY/AGITATION 01/31/21 19:50 02/08/21 08:30 Lorazepam (Ativan) 2 mg STAT STAT IM 02/07/21 11:12 02/07/21 11:14 DC 02/07/21 11:22 Magnesium Hydroxide (Milk Of Magnesia) 30 ml DAILYPRN PRN PO CONSTIPATION 01/31/21 15:25 Naproxen (Naprosyn) 500 mg BID PRN PO PAIN LEVEL 1-4 01/31/21 15:25 02/07/21 18:09 Nicotine (Nicoderm Cq 21mg) 1 patch DAILY PRN TD nicotine withdrawl 01/31/21 15:25 Pantoprazole Sodium (Protonix) 40 mg DAILY PO 01/31/21 09:00 01/31/21 15:33 DC 01/31/21 10:22 Pantoprazole Sodium (Protonix) 40 mg DAILY PO 02/01/21 09:00 02/08/21 08:13 Patient Own Medication (Pt Own Med *Controlled Subst*) 0.4 ML Q7D IM 02/05/21 09:00 02/05/21 12:36 DC Patient Own Medication (Pt Own Med *Controlled Subst*) 0.4 ML Q7D SQ 02/05/21 12:36 02/05/21 13:35 Pregabalin (Lyrica) 75 mg BID PO 01/31/21 09:00 01/31/21 15:33 DC 01/31/21 10:22 Pregabalin (Lyrica) 75 mg BID PO 01/31/21 21:00 02/08/21 08:13 Propranolol HCl (Inderal) 20 mg BID PO 01/31/21 09:00 01/31/21 15:33 DC 01/31/21 12:12 Propranolol HCl (Inderal) 20 mg BID PO 01/31/21 21:00 02/08/21 08:12 Risperidone (RisperDAL) 1 mg QAM PO 01/31/21 09:00 01/31/21 15:33 DC 01/31/21 10:23 Risperidone (RisperDAL) 1 mg QAM PO 02/01/21 09:00 02/08/21 08:13 Risperidone (RisperDAL) 2 mg QHS PO 01/31/21 21:00 01/31/21 15:33 DC Risperidone (RisperDAL) 2 mg QHS PO 01/31/21 21:00 02/07/21 20:07 Sertraline HCl (Zoloft) 100 mg DAILY PO 01/31/21 09:00 01/31/21 15:33 DC 01/31/21 10:22 Sertraline HCl (Zoloft) 100 mg DAILY PO 02/01/21 09:00 02/08/21 08:13 Trazodone HCl (Desyrel) 50 mg QHSP PRN PO INSOMNIA 01/31/21 15:25 02/07/21 20:07 Allergies Coded Allergies: quetiapine (Verified Adverse Reaction, Intermediate, DRY MOUTH AND PANICS, 11/30/20) HELDER EDWARDS NP Feb 08, 2021 09:31
[2021-02-08 17:31] VITALS: BP 135/69
[2021-02-08] MEDS: risperiDONE 2 MG TAB PO SCH (22:37)
[2021-02-09 07:08] VITALS: BP 102/57
[2021-02-09] MEDS: PREGABALIN 75 MG CAP(LYRICA) PO SCH ×2 (08:42→20:45)
[2021-02-09] MEDS: CETIRIZINE (ZyrTEC) 10 MG TAB PO SCH (08:51)
[2021-02-09] MEDS: PROPRANOLOL 20 MG TAB PO SCH ×2 (08:51→20:46)
[2021-02-09] MEDS: SERTRALINE 100 MG TAB PO SCH (08:52)
[2021-02-09] MEDS: PANTOPRAZOLE 40MG TAB (PROTONIX) PO SCH (08:52)
[2021-02-09] MEDS: risperiDONE 1 MG TAB PO SCH (08:52)
[2021-02-09] MEDS: LORazepam 2 MG TAB PO PRN ×2 (09:41→16:50)
[2021-02-09] MEDS: NYSTATIN 100,000 UNITS/GM TOPICAL PWD 15 GM TOP SCH ×2 (14:55→20:45)
[2021-02-09 16:21] VITALS: BP 149/69
[2021-02-09] MEDS: risperiDONE 2 MG TAB PO SCH (20:45)
[2021-02-10 05:45] VITALS: BP 133/60
[2021-02-10] MEDS: PROPRANOLOL 20 MG TAB PO SCH ×2 (08:06→20:07)
[2021-02-10] MEDS: NYSTATIN 100,000 UNITS/GM TOPICAL PWD 15 GM TOP SCH ×2 (08:07→17:38)
[2021-02-10] MEDS: risperiDONE 1 MG TAB PO SCH (08:07)
[2021-02-10] MEDS: CETIRIZINE (ZyrTEC) 10 MG TAB PO SCH (08:07)
[2021-02-10] MEDS: NAPROXEN 250 MG TAB PO PRN (08:07)
[2021-02-10] MEDS: PREGABALIN 75 MG CAP(LYRICA) PO SCH ×2 (08:07→20:06)
[2021-02-10] MEDS: SERTRALINE 100 MG TAB PO SCH (08:07)
[2021-02-10] MEDS: PANTOPRAZOLE 40MG TAB (PROTONIX) PO SCH (08:07)
[2021-02-10] MEDS: LORazepam 2 MG TAB PO PRN ×2 (11:43→20:06)
[2021-02-10] MEDS: risperiDONE 2 MG TAB PO SCH (20:06)
[2021-02-10] MEDS: traZODone 50 MG TAB PO PRN (20:06)
--- NOTE | 2021-02-10 22:43 | MHIPN ---
[facility] PROGRESS NOTE DATE: 02/09/2021 The patient is seen via telepsychiatry due to the current Coronavirus crisis. The patient today states that he is doing okay. He says he slept well. He denies any thoughts of wanting to hurt himself. He is still having significant depression and having some hopelessness and helplessness. MENTAL STATUS EXAMINATION: He is alert and oriented times three. Eye contact is fair. Psychomotor activity is decreased. There is no formal thought disorder noted. Mood is depressed. Affect appropriate to mood. He is not psychotic, suicidal, or homicidal. Concentration and memory is good. Insight and judgment is poor. DIAGNOSES: Major depressive disorder. Borderline personality disorder. TREATMENT PLAN: At this point, the patient will be further monitored for his ongoing depression, and we will titrate his medications as indicated, and we will monitor him for continued resolution of suicidal ideations. FLORIAN
[2021-02-11 06:05] VITALS: BP 112/56
[2021-02-11 08:15] VITALS: BP 112/56
[2021-02-11] MEDS: PROPRANOLOL 20 MG TAB PO SCH (08:15)
[2021-02-11] MEDS: PANTOPRAZOLE 40MG TAB (PROTONIX) PO SCH (08:16)
[2021-02-11] MEDS: CETIRIZINE (ZyrTEC) 10 MG TAB PO SCH (08:16)
[2021-02-11] MEDS: SERTRALINE 100 MG TAB PO SCH (08:16)
[2021-02-11] MEDS: PREGABALIN 75 MG CAP(LYRICA) PO SCH (08:16)
[2021-02-11] MEDS: risperiDONE 1 MG TAB PO SCH (08:16)
[2021-02-11] MEDS: NYSTATIN 100,000 UNITS/GM TOPICAL PWD 15 GM TOP SCH (08:17)
[2021-02-11] MEDS ORDERED: TRAZ-252 PO (09:15)
--- NOTE | 2021-02-11 12:20 | MHDS ---
[facility] DISCHARGE SUMMARY DATE OF ADMISSION: 01/31/2021 DATE OF DISCHARGE: 02/11/2021 DIAGNOSES: 1. Major depressive disorder. 2. Autism spectrum disorder. 3. Borderline personality disorder. 4. Posttraumatic stress disorder (PTSD). 5. Obsessive-compulsive disorder (OCD). 6. Unspecified eating disorder. 7. Unspecified anxiety disorder. IDENTIFYING DATA: Patient is a 25-year-old disabled transgender female to male who reports that he has been cutting himself and had suicidal thoughts and was admitted. For details of history of present illness (HPI), past psychiatric history, medical history, substance abuse history, please refer to the initial evaluation by Dr. Irwin. COURSE IN THE HOSPITAL: Patient was placed on the same medication he was taking at [facility] ([facility]), which are risperidone and sertraline. He was also placed on individual, group and milieu therapy. Since patient had an intense urge to cut himself, he was placed on one-to-one observation. Patient was taught relaxation and deep breathing maneuver exercises to help him with his anxiety. His mood improved. He slept better. His cutting behavior stopped. He was interacting well with the staff and peers, attended groups, denied any side effects of the medication, but he still had some residual anxiety. However, patient had coping skills of deep breathing and relaxation methods and he was stable at the time of discharge. REVIEW OF SYSTEMS: Denied any chest pain or palpitations. Denied cough or shortness of breath. Denied any abdominal pain. Denied dysuria or dizziness. MENTAL STATUS EXAMINATION: Dressed in hospital clothes. Cooperative. Made good eye contact. Psychomotor activity is normal. Though process is linear, goal-directed. Speech: Rate, rhythm and volume are good. Thought content: Denied any suicidal or homicidal ideas. Denied any delusions. Perception: Denied any auditory or visual hallucinations. His attention and orientation were within normal limits. He was oriented to time, place and person. Memory: Immediate, remote, recent are good. His judgment was good. MEDICATIONS: - sertraline 100 mg daily - risperidone 1 mg in the morning and 2 mg at night. - pantoprazole 40 mg daily - cetrizine 10 mg daily - propanolol 20 mg twice a day - pregabalin (Lyrica) 75 mg twice a day - trazodone 50 mg at bedtime as needed PLAN: Discharge home. Patient will be going to [facility] ([facility]), where he will be followed up by psychiatrist.
--- NOTE | 2021-02-11 14:37 | MHIPN ---
[facility] PSYCHIATRIC PROGRESS NOTE DATE OF SERVICE: 02/10/2021 The patient is seen via telepsychiatry due to the current Coronavirus crisis. HISTORY OF PRESENT ILLNESS: The patient today states that he is doing good; he says he slept good last night. He is still having some depression, but he feels that it is a lot related to stressful situations that he is under. He is denying any suicidal thoughts or any self harm thoughts. MENTAL STATUS EXAM: This patient is alert and oriented times 3. He is pleasant and cooperative, verbally spontaneous. Eye contact is fairly good. There is no formal thought disorder. He says his mood is good. Affect is flat. He is not psychotic. He is denying suicidal or homicidal ideations. Concentration is fair. Memory intact. Insight and judgment poor. DIAGNOSES: 1. Major depression disorder. 2. Borderline personality disorder. TREATMENT PLAN: We will continue to the monitor the patient for further stabilization of his mood and resolution of any self harm or suicidal thoughts and titrate his medications as indicated. FLORIAN
== END 2021-02-11 14:05 | disposition home or self-care (01) | DRG 881 ==
LOC: M ED 09:48 → M ED INP 01-31 15:23 → M PSY 01-31 17:10
PROVIDERS: ADMIT Psychiatry & Neurology Psychiatry; ATTEND Psychiatry & Neurology Psychiatry
DX: F32.9 Major depressive disorder, single episode, unspecified (principal); M79.7 Fibromyalgia; K21.9 Gastro-esophageal reflux disease without esophagitis; F84.0 Autistic disorder; F60.3 Borderline personality disorder; F43.10 Post-traumatic stress disorder, unspecified; F41.9 Anxiety disorder, unspecified; F50.9 Eating disorder, unspecified; F64.0 Transsexualism; F42.9 Obsessive-compulsive disorder, unspecified; Z78.1 Physical restraint status; Z91.5 Personal history of self-harm; Z88.8 Allergy status to other drugs, medicaments and biological substances

== ENCOUNTER 2021-02-12 17:45 | Emergency (ER) | payer MEDICARE, OTHER ==
[~2021-02-12] VITALS: Ht 160 cm; Wt 120.0 kg
[~2021-02-12 17:45] MED LIST changes: +TRAZ-252 PO
[2021-02-12] MEDS ORDERED: traZODone 50 MG TAB PO ONE (20:10)
[2021-02-12] MEDS ORDERED: risperiDONE 2 MG TAB PO ONE (20:10)
[2021-02-12] MEDS ORDERED: PREGABALIN 75 MG CAP(LYRICA) PO ONE (20:10)
[2021-02-12] MEDS ORDERED: PROPRANOLOL 20 MG TAB PO ONE (20:10)
[2021-02-12 21:31] VITALS: BP 131/69
[2021-02-12 21:40] LABS: HEMATOCRIT 42.8 % (36.0-47.0); HEMOGLOBIN 13.9 g/dl (12.0-15.5); MEAN CORPUSCULAR HGB CONC 32.5 g/dl (32.0-36.5); MEAN CORPUSCULAR VOLUME 83.1 fl (80.0-96.0); PLATELET COUNT, AUTOMATED 235 10^3/uL (150-450); RED BLOOD COUNT 5.15 10^6/uL (4.00-5.40); WHITE BLOOD COUNT 9.2 10^3/uL (4.0-10.0)
[2021-02-12 22:09] LABS: AMPHETAMINES LEVEL URINE NEGATIVE (NEGATIVE); BARBITURATES URINE NEGATIVE (NEGATIVE); BENZODIAZEPINES URINE POSITIVE (NEGATIVE); CANNABINOIDS URINE NEGATIVE (NEGATIVE); COCAINE METABOLITE URINE NEGATIVE (NEGATIVE); METHADONE URINE NEGATIVE (NEGATIVE); OPIATES URINE NEGATIVE (NEGATIVE); PHENCYCLIDINE URINE NEGATIVE (NEGATIVE)
[2021-02-12 22:12] LABS: HCG, SERUM QUALITATIVE NEGATIVE (NEGATIVE)
[2021-02-12 22:18] LABS: ACETAMINOPHEN LEVEL < 2.0 UG/ML (10.0-30.0); ALBUMIN 3.8 GM/DL (3.2-5.2); ALT/SGPT 28 U/L (12-78); BILIRUBIN,DIRECT 0.1 MG/DL (0.0-0.2); BILIRUBIN,TOTAL 0.3 MG/DL (0.2-1.0); BLOOD UREA NITROGEN 21 MG/DL (7-18); CALCIUM LEVEL 8.9 MG/DL (8.5-10.1); CARBON DIOXIDE LEVEL 28 MEQ/L (21-32); CHLORIDE LEVEL 110 MEQ/L (98-107); CREATININE FOR GFR 1.13 MG/DL (0.55-1.30); ETHYL ALCOHOL (ETHANOL) < 0.003 % (0.000-0.010); GLOMERULAR FILTRATION RATE > 60.0 (>60); GLUCOSE, FASTING 91 MG/DL (70-100); POTASSIUM SERUM 3.9 MEQ/L (3.5-5.1); SALICYLATE LEVEL < 1.7 MG/DL (5.0-30.0); SODIUM LEVEL 143 MEQ/L (136-145); TOTAL PROTEIN 6.5 GM/DL (6.4-8.2)
[2021-02-13 06:21] VITALS: BP 119/63
[2021-02-13] MEDS ORDERED: risperiDONE 1 MG TAB PO ONE (07:30)
[2021-02-13] MEDS ORDERED: PANTOPRAZOLE 40MG TAB (PROTONIX) PO ONE (07:30)
[2021-02-13] MEDS ORDERED: SERTRALINE 100 MG TAB PO ONE (07:30)
[2021-02-13] MEDS ORDERED: CETIRIZINE (ZyrTEC) 10 MG TAB PO ONE (07:30)
[2021-02-13] MEDS ORDERED: PREGABALIN 75 MG CAP(LYRICA) PO ONE (07:30)
[2021-02-13] MEDS ORDERED: PROPRANOLOL 20 MG TAB PO ONE (08:00)
== END 2021-02-13 10:52 | disposition home or self-care (01) ==
LOC: M ED 17:45
DX: R45.851 Suicidal ideations (principal); F32.9 Major depressive disorder, single episode, unspecified; F43.10 Post-traumatic stress disorder, unspecified; K21.9 Gastro-esophageal reflux disease without esophagitis; Z88.8 Allergy status to other drugs, medicaments and biological substances

== ENCOUNTER 2021-02-14 16:50 | Emergency (ER) | payer MEDICARE, OTHER ==
[~2021-02-14] VITALS: Ht 160 cm; Wt 120.9 kg
[2021-02-14 17:55] LABS: HEMOGLOBIN 14.2 g/dl (12.0-15.5); MEAN CORPUSCULAR HGB CONC 32.3 g/dl (32.0-36.5); MEAN CORPUSCULAR VOLUME 83.7 fl (80.0-96.0); PLATELET COUNT, AUTOMATED 250 10^3/uL (150-450); RED BLOOD COUNT 5.26 10^6/uL (4.00-5.40); WHITE BLOOD COUNT 8.2 10^3/uL (4.0-10.0)
[2021-02-14 18:20] LABS: AMPHETAMINES LEVEL URINE NEGATIVE (NEGATIVE); BARBITURATES URINE NEGATIVE (NEGATIVE); BENZODIAZEPINES URINE NEGATIVE (NEGATIVE); CANNABINOIDS URINE NEGATIVE (NEGATIVE); COCAINE METABOLITE URINE NEGATIVE (NEGATIVE); METHADONE URINE NEGATIVE (NEGATIVE); OPIATES URINE NEGATIVE (NEGATIVE); PHENCYCLIDINE URINE NEGATIVE (NEGATIVE)
[2021-02-14 18:32] LABS: ACETAMINOPHEN LEVEL < 2.0 UG/ML (10.0-30.0); ALT/SGPT 27 U/L (12-78); BILIRUBIN,DIRECT 0.1 MG/DL (0.0-0.2); BILIRUBIN,TOTAL 0.5 MG/DL (0.2-1.0); BLOOD UREA NITROGEN 19 MG/DL (7-18); CALCIUM LEVEL 8.9 MG/DL (8.5-10.1); CARBON DIOXIDE LEVEL 32 MEQ/L (21-32); CHLORIDE LEVEL 108 MEQ/L (98-107); CREATININE FOR GFR 1.17 MG/DL (0.55-1.30); ETHYL ALCOHOL (ETHANOL) < 0.003 % (0.000-0.010); GLOMERULAR FILTRATION RATE 59.1 (>60); GLUCOSE, FASTING 82 MG/DL (70-100); POTASSIUM SERUM 3.7 MEQ/L (3.5-5.1); SALICYLATE LEVEL < 1.7 MG/DL (5.0-30.0); SODIUM LEVEL 143 MEQ/L (136-145); TOTAL PROTEIN 6.6 GM/DL (6.4-8.2)
[2021-02-14] MEDS ORDERED: RAMELTEON 8 MG TAB (ROZEREM) PO ONE (22:55)
[2021-02-14] MEDS ORDERED: risperiDONE 2 MG TAB PO ONE (22:55)
[2021-02-14] MEDS ORDERED: PROPRANOLOL 20 MG TAB PO ONE (22:55)
[2021-02-14] MEDS ORDERED: PREGABALIN 75 MG CAP(LYRICA) PO ONE (22:55)
[2021-02-14 23:07] VITALS: BP 105/70
[2021-02-15 10:02] VITALS: BP 137/81
== END 2021-02-15 10:03 | disposition home or self-care (01) ==
LOC: M ED 16:50
DX: F32.9 Major depressive disorder, single episode, unspecified (principal); K21.9 Gastro-esophageal reflux disease without esophagitis; Z79.899 Other long term (current) drug therapy; Z88.8 Allergy status to other drugs, medicaments and biological substances

== ENCOUNTER 2021-02-17 16:47 | Emergency (ER) | payer MEDICARE, OTHER ==
[~2021-02-17] VITALS: Ht 160 cm; Wt 120.5 kg
[2021-02-17 18:10] LABS: HEMATOCRIT 43.9 % (36.0-47.0); HEMOGLOBIN 14.2 g/dl (12.0-15.5); MEAN CORPUSCULAR HEMOGLOBIN 26.9 pg (27.0-33.0); MEAN CORPUSCULAR HGB CONC 32.3 g/dl (32.0-36.5); MEAN CORPUSCULAR VOLUME 83.1 fl (80.0-96.0); PLATELET COUNT, AUTOMATED 258 10^3/uL (150-450); RED BLOOD COUNT 5.28 10^6/uL (4.00-5.40)
[2021-02-17 18:28] LABS: AMPHETAMINES LEVEL URINE NEGATIVE (NEGATIVE); BARBITURATES URINE NEGATIVE (NEGATIVE); BENZODIAZEPINES URINE POSITIVE (NEGATIVE); CANNABINOIDS URINE NEGATIVE (NEGATIVE); COCAINE METABOLITE URINE NEGATIVE (NEGATIVE); METHADONE URINE NEGATIVE (NEGATIVE); OPIATES URINE NEGATIVE (NEGATIVE); PHENCYCLIDINE URINE NEGATIVE (NEGATIVE)
[2021-02-17 18:40] LABS: ACETAMINOPHEN LEVEL < 2.0 UG/ML (10.0-30.0); ALBUMIN 3.6 GM/DL (3.2-5.2); ALT/SGPT 23 U/L (12-78); BILIRUBIN,DIRECT 0.1 MG/DL (0.0-0.2); BILIRUBIN,TOTAL 0.5 MG/DL (0.2-1.0); BLOOD UREA NITROGEN 16 MG/DL (7-18); CALCIUM LEVEL 8.7 MG/DL (8.5-10.1); CARBON DIOXIDE LEVEL 29 MEQ/L (21-32); CHLORIDE LEVEL 107 MEQ/L (98-107); CREATININE FOR GFR 1.07 MG/DL (0.55-1.30); ETHYL ALCOHOL (ETHANOL) < 0.003 % (0.000-0.010); GLOMERULAR FILTRATION RATE > 60.0 (>60); GLUCOSE, FASTING 87 MG/DL (70-100); POTASSIUM SERUM 3.9 MEQ/L (3.5-5.1); SALICYLATE LEVEL < 1.7 MG/DL (5.0-30.0); SODIUM LEVEL 141 MEQ/L (136-145); TOTAL PROTEIN 6.6 GM/DL (6.4-8.2)
[2021-02-17 20:23] LABS: RSV AMPLIFICATION NEGATIVE (NEGATIVE)
[2021-02-17] MEDS ORDERED: PREGABALIN 75 MG CAP(LYRICA) PO ONE (20:45)
[2021-02-17] MEDS ORDERED: risperiDONE 2 MG TAB PO ONE (20:45)
[2021-02-17] MEDS ORDERED: PROPRANOLOL 20 MG TAB PO ONE (20:45)
[2021-02-17 21:39] VITALS: BP 145/66
[2021-02-18] MEDS ORDERED: PREGABALIN 75 MG CAP(LYRICA) PO ONE (09:15)
[2021-02-18] MEDS ORDERED: risperiDONE 1 MG TAB PO ONE (09:15)
[2021-02-18] MEDS ORDERED: PANTOPRAZOLE 40MG TAB (PROTONIX) PO ONE (09:15)
[2021-02-18] MEDS ORDERED: PROPRANOLOL 20 MG TAB PO ONE (09:15)
[2021-02-18] MEDS ORDERED: SERTRALINE 100 MG TAB PO ONE (09:15)
[2021-02-18 09:40] VITALS: BP 136/68
--- NOTE | 2021-02-18 20:31 | ECGEPIP ---
[facility] - ED Test Date: 2021-02-17 Pat Name: LAW ROMAN Department: Room: - Gender: Female Supervisor Accounts Receivable: : 1995 Requested By: MARYBETH YANG Order Number: [id number] Reading MD: Blanca Reynolds Measurements Intervals [place] Rate: 70 P: 23 IN: 136 QRS: 45 QRSD: 82 T: 18 QT: 366 QTc: 395 Interpretive Statements Normal sinus rhythm similar 01/30/21 Electronically Signed on 02-18-2021 20:30:37 EDT by Blanca Reynolds
== END 2021-02-18 09:42 ==
LOC: M ED 16:47
DX: R45.851 Suicidal ideations (principal); F32.2 Major depressive disorder, single episode, severe without psychotic features; R00.0 Tachycardia, unspecified; F42.9 Obsessive-compulsive disorder, unspecified; F43.10 Post-traumatic stress disorder, unspecified; F84.0 Autistic disorder; M79.7 Fibromyalgia; K21.9 Gastro-esophageal reflux disease without esophagitis; Z88.8 Allergy status to other drugs, medicaments and biological substances; Z79.899 Other long term (current) drug therapy

== ENCOUNTER 2021-11-29 06:17 | Day surgery (SDC) | payer MEDICARE, MEDICAID ==
[~2021-11-29] VITALS: Ht 160 cm; Wt 125.2 kg
[2021-11-29] MEDS ORDERED: LR 1,000 ML IV ONE ×2 (07:25→08:15)
[2021-11-29 08:00] LABS: HEMATOCRIT 40.9 % (36.0-47.0); HEMOGLOBIN 13.5 g/dl (12.0-15.5); PLATELET COUNT, AUTOMATED 240 10^3/uL (150-450); RED BLOOD COUNT 4.65 10^6/uL (4.00-5.40); WHITE BLOOD COUNT 7.1 10^3/uL (4.0-10.0)
[2021-11-29] MEDS ORDERED: LIDOCAINE 2% 100MG/5ML SDV (FOR ANES.) As Ordered ONE ×2 (08:29→08:30)
[2021-11-29] MEDS ORDERED: ROCURONIUM BROMIDE 50 MG/5 ML VIAL As Ordered ONE ×2 (08:29→11:01)
[2021-11-29] MEDS ORDERED: propofoL 200 MG/20 ML VIAL As Ordered ONE ×2 (08:29→11:38)
[2021-11-29] MEDS ORDERED: dexameTHASONE 4 MG/ML 1ML VIAL (J1100 PER 1MG) As Ordered ONE (08:30)
[2021-11-29] MEDS ORDERED: MIDAZOLAM INJ 2MG/2ML VIAL (J2250 PER 1MG) As Ordered ONE (08:30)
[2021-11-29] MEDS ORDERED: fentaNYL 100 MCG/2 ML INJECTION As Ordered ONE (08:30)
[2021-11-29] MEDS ORDERED: ONDANSETRON 4MG/2ML VIAL As Ordered ONE (08:30)
[2021-11-29] MEDS ORDERED: BUPIVACAINE HCL 0.25% 30ML VIAL As Ordered ONE (08:35)
[2021-11-29] MEDS ORDERED: SUGAMMADEX SODIUM 500 MG/5 ML VIAL (BRIDION) As Ordered ONE (08:59)
[2021-11-29] MEDS ORDERED: KETOROLAC 60MG 2ML VIAL As Ordered ONE (08:59)
[2021-11-29] MEDS ORDERED: ceFAZolin SOD 2 GM in IV 1 EA IV ONE (09:20)
[2021-11-29] MEDS ORDERED: ceFAZolin SOD 1 GM in D5W MINI-BAG PLUS 50 ML IV ONE (09:20)
[2021-11-29] MEDS ORDERED: ALBUTEROL 6.7GM INHALER **FOR ANES. CART/OMNICELL ONLY As Ordered ONE (10:20)
[2021-11-29] MEDS ORDERED: ACETAMINOPHEN 1000MG 100ML IV BTL (OFIRMEV) (J0131 PER 10MG) As Ordered ONE (11:31)
[2021-11-29] MEDS ORDERED: IBUP-1022 PO (11:57)
[2021-11-29] MEDS ORDERED: OXYC1TAB23 PO (11:58)
[2021-11-29] MEDS ORDERED: ONDANSETRON 4MG/2ML VIAL IV PRN ×2 (12:35→12:55)
[2021-11-29] MEDS ORDERED: fentaNYL 100 MCG/2 ML INJECTION IV PRN (12:35)
[2021-11-29] MEDS ORDERED: LR 1,000 ML IV SCH ×2 (12:35→12:50)
[2021-11-29] MEDS ORDERED: HYDROMORPHONE HCL 0.5 MG/ 0.5 ML SYRINGE (J1170 PER 1) IV PRN (12:35)
[2021-11-29] MEDS ORDERED: oxyCODONE 5MG TAB PO PRN (12:35)
[2021-11-29 14:57] VITALS: BP 123/72
[2021-11-29] MEDS: KETOROLAC 30 MG/ML 1ML VIAL IV PRN ×2 (15:12→20:59)
[2021-11-29 15:30] VITALS: BP 131/76
[2021-11-29 16:30] VITALS: BP 115/71
[2021-11-29 17:30] VITALS: BP 122/77
[2021-11-29] MEDS: PERCOCET 5MG/325MG TAB PO PRN (19:40)
[2021-11-29] MEDS: DOCUSATE SODIUM 100MG CAPSULE PO SCH (20:58)
[2021-11-29 21:14] VITALS: BP 103/51
[2021-11-30 02:04] VITALS: BP 129/73
[2021-11-30] MEDS: PERCOCET 5MG/325MG TAB PO PRN ×2 (02:10→08:58)
[2021-11-30] MEDS: KETOROLAC 30 MG/ML 1ML VIAL IV PRN (04:26)
[2021-11-30 05:38] VITALS: BP 108/65
[2021-11-30] MEDS: DOCUSATE SODIUM 100MG CAPSULE PO SCH (08:58)
[2021-11-30 09:58] VITALS: BP 111/65
== END 2021-11-30 12:05 | disposition home or self-care (01) ==
LOC: M SDC 06:17 → M MS5PR 14:50 → M SDC 11-30 12:05
PROVIDERS: ATTEND Specialist
DX: N85.00 Endometrial hyperplasia, unspecified (principal); F64.9 Gender identity disorder, unspecified; F41.9 Anxiety disorder, unspecified; F31.9 Bipolar disorder, unspecified; F43.10 Post-traumatic stress disorder, unspecified; Z91.410 Personal history of adult physical and sexual abuse; F60.3 Borderline personality disorder; F42.9 Obsessive-compulsive disorder, unspecified; F84.0 Autistic disorder; Z91.52 Personal history of nonsuicidal self-harm; M79.7 Fibromyalgia; M54.9 Dorsalgia, unspecified; Z88.8 Allergy status to other drugs, medicaments and biological substances; Z79.899 Other long term (current) drug therapy
CPT/HCPCS: 36415; 58571; 81025; 85027; 86850; 86900; 86901; 88307; 96374; 96376; J0131; J0690; J1100; J1885; J2250; J2405; J3010